=== PATIENT | female | born 1985 | race Caucasian/White ===

== ENCOUNTER 2018-10-30 13:58 | Inpatient (IN) | payer OTHER ==
[~2018-10-30] VITALS: Ht 175.3 cm; Wt 103.4 kg
[2018-10-30 17:08] LABS: BASO % 0 % (0-3); EOS # 0.1 x10^3/uL (0.0-0.7); EOS % 1 % (0-3); HEMATOCRIT 40.3 % (36.0-47.0); HEMOGLOBIN 13.8 g/dL (12.0-15.5); LYMPH # 2.4 x10^3/uL (1.0-4.8); LYMPH % 24 % (24-48); MEAN CORPUSCULAR HEMOGLOBIN 30 pg (25-35); MEAN CORPUSCULAR HGB CONC 34 g/dL (31-37); MEAN CORPUSCULAR VOLUME 86 fL (79-100); MONO # 0.5 x10^3/uL (0.0-1.1); MONO % 6 % (0-9); NEUT # 6.7 x10^3/uL (1.8-7.7); NEUT % 69 % (31-73); PLATELET COUNT 296 x10^3/uL (140-400); RED BLOOD COUNT 4.68 x10^6/uL (3.50-5.40); RED CELL DISTRIBUTION WIDTH 14.3 % (11.5-14.5); WHITE BLOOD COUNT 9.7 x10^3/uL (4.0-11.0)
[2018-10-30] MEDS ORDERED: NITROGLYCERIN SUBLINGUAL 0.4 MG BOTTLE OF 25. SL PRN ×2 (17:15→18:00)
[2018-10-30 17:22] LABS: CALCIUM 8.7 mg/dL (8.5-10.1); CREATININE 0.6 mg/dL (0.6-1.0); GFR 113.8
--- NOTE | 2018-10-30 17:52 | PHYS DOC ---
Past Medical History Past Medical History: COPD, Diabetes-Type II Past Surgical History: Alcohol Use: None Drug Use: None Adult General Chief Complaint Chief Complaint: CHEST PAIN-NON CARDIAC NATURE HPI HPI Patient is a 33 year old female with history of insulin dependent diabetes, hypertension dyslipidemia and tobaccoism presents with intermittent daily chest pain for the past 2-3 months. Patient states pain is external nonradiating and is described as pressure-like. It is worse with exertion and is associated with increased shortness of breath. Although, patient states she does have chest pain that occurs at rest. As pressure is gradually increased in severity and duration over the past 2-3 weeks. She reports increased stress in her home life during this period. Patient states she was evaluated at [facility] emergency Department for the same and was discharged home with nitroglycerin pills and instructed to follow-up with local primary care physician to coordinate outpatient cardiac testing. Chest pain returned today, patient took 2 nitroglycerin at home with improvement. No fever chills, nausea vomiting and sweats. Reports occasional cough nonproductive. No leg pain or swelling. No history of DVT or PE. Additional records obtained from [facility] emergency department medical record[] Review of Systems Review of Systems U symptoms as per history of present illness. All other review symptoms are negative. All other systems were reviewed and found to be within normal limits, except as documented in this note. Current Medications Current Medications Current Medications Medications (Trade) Dose Ordered Sig/[facility] Start Time Stop Time Status Last Admin Dose Admin Nitroglycerin (Nitrostat) 0.4 mg PRN Q5MIN PRN 10/30/18 17:15 10/30/18 17:18 0.4 MG Allergies Allergies Allergies Coded Allergies Type Severity Reaction Last Updated Verified acetaminophen Allergy Intermediate 10/30/18 Yes hydrocodone Allergy Intermediate 10/30/18 Yes vancomycin Allergy Intermediate 10/30/18 Yes Physical Exam Physical Exam Constitutional: Well developed, well nourished, no acute distress, non-toxic appearance. [] HENT: Normocephalic, atraumatic, bilateral external ears normal, oropharynx moist, no oral exudates, nose normal. [] Eyes: PERRLA, EOMI, conjunctiva normal, no discharge. [] Neck: Normal range of motion, no tenderness, supple, no stridor. [] Cardiovascular:Heart rate regular rhythm, no murmur on negative Homans signs. [] Lungs & Thorax: Respirations nonlabored, coarse diminished breath sounds with rhonchi bilaterally. No wheezes or rales.[] Abdomen: Bowel sounds normal, soft, no tenderness, no masses, no pulsatile masses. [] Skin: Warm, dry, no erythema, no rash. [] Back: No tenderness, no CVA tenderness. [] Extremities: No tenderness, no cyanosis, no clubbing, ROM intact, no edema. [] Neurologic: Alert and oriented X 3, normal motor function, normal sensory function, no focal deficits noted. [] Psychologic: Affect normal, judgement normal, mood normal. [] Current Patient Data Vital Signs Vital Signs Date Time Temp Pulse Resp B/P (MAP) Pulse Ox O2 Delivery O2 Flow Rate FiO2 10/30/18 17:18 79 141/89 10/30/18 15:15 98.0 18 98 Room Air 98.0 Lab Values Laboratory Tests Test 10/30/18 15:27 10/30/18 15:36 White Blood Count 9.7 x10^3/uL (4.0-11.0) Red Blood Count 4.68 x10^6/uL (3.50-5.40) Hemoglobin 13.8 g/dL (12.0-15.5) Hematocrit 40.3 % (36.0-47.0) Mean Corpuscular Volume 86 fL (79-100) Mean Corpuscular Hemoglobin 30 pg (25-35) Mean Corpuscular Hemoglobin Concent 34 g/dL (31-37) Red Cell Distribution Width 14.3 % (11.5-14.5) Platelet Count 296 x10^3/uL (140-400) Neutrophils (%) (Auto) 69 % (31-73) Lymphocytes (%) (Auto) 24 % (24-48) Monocytes (%) (Auto) 6 % (0-9) Eosinophils (%) (Auto) 1 % (0-3) Basophils (%) (Auto) 0 % (0-3) Neutrophils # (Auto) 6.7 x10^3/uL (1.8-7.7) Lymphocytes # (Auto) 2.4 x10^3/uL (1.0-4.8) Monocytes # (Auto) 0.5 x10^3/uL (0.0-1.1) Eosinophils # (Auto) 0.1 x10^3/uL (0.0-0.7) Basophils # (Auto) 0.0 x10^3/uL (0.0-0.2) Sodium Level 136 mmol/L (136-145) Potassium Level 4.0 mmol/L (3.5-5.1) Chloride Level 100 mmol/L (98-107) Carbon Dioxide Level 23 mmol/L (21-32) Anion Gap 13 (6-14) Blood Urea Nitrogen 13 mg/dL (7-20) Creatinine 0.6 mg/dL (0.6-1.0) Estimated GFR (Cockcroft-Gault) 113.8 Glucose Level 395 mg/dL (70-99) H Calcium Level 8.7 mg/dL (8.5-10.1) Troponin I Quantitative 0.553 ng/mL (0.000-0.055) POC Urine HCG, Qualitative Hcg negative (Negative) Laboratory Tests 10/30/18 15:27 Laboratory Tests 10/30/18 15:27 EKG EKG [EKG, biphasic T waves in leads V2 and V3.] Radiology/Procedures Radiology/Procedures [Chest x-ray: pending:] Course & Med Decision Making Course & Med Decision Making Pertinent Labs and Imaging studies reviewed. (See chart for details) [PExertional chest pain with escalation in the past 2-3 months with abnormal EKG with repeat ED visit in 24 hours. Patient pain-free after Nitro �1. Troponin positive. Aspirin given. Dr. Mayer in the ED for admission orders. Cardiology notified of consult. ] Dragon Disclaimer Dragon Disclaimer This electronic medical record was generated, in whole or in part, using a voice recognition dictation system. Departure Departure Impression: Primary Impression: NSTEMI (non-ST elevated myocardial infarction) Additional Impression: Hyperglycemia Disposition: 09 ADMITTED INPATIENT Condition: STABLE Referrals: NO PCP (PCP) Problem Qualifiers KAREY CONNER DO Oct 30, 2018 17:52
[2018-10-30] MEDS ORDERED: HEPARIN for IV BOLUS 10,000 UNIT/10 ML VIAL. IV PRN (18:00)
[2018-10-30] MEDS ORDERED: IV NORMAL SALINE 1000ML BAG 1,000 ML IV ONE (18:00)
[2018-10-30] MEDS ORDERED: ONDANSETRON PF 4 MG/2 ML VIAL. IV PRN ×2 (18:00→19:00)
[2018-10-30] MEDS ORDERED: HEPARIN for IV BOLUS 10,000 UNIT/10 ML VIAL. IV ONE (18:00)
[2018-10-30] MEDS: NITROGLYCERIN OINT 1 GM PACKET. TP SCH (18:00)
[2018-10-30] MEDS ORDERED: HEPARIN 25,000UTS/500ML PREMIX 500 ML IV PRN (18:00)
[2018-10-30 18:20] LABS: BARBITURATES NEG (NEG); BENZODIAZEPINES NEG (NEG); CANNABINOIDS NEG (NEG); COCAINE NEG (NEG); METHADONE NEG (NEG); OPIATES NEG (NEG); PHENCYCLIDINE NEG (NEG)
[2018-10-30 18:22] LABS: AMPHETAMINE/METHAMPHETAMINE NEG (NEG)
[2018-10-30] MEDS ORDERED: ASPIRIN CHEWABLE 81 MG TABLET. PO ONE (18:30)
--- NOTE | 2018-10-30 18:53 | PDOC1 ---
History and Physical Date of Admission Date of Admission DATE: 10/30/18 TIME: 18:45 Identification/Chief Complaint Chief Complaint Chest pain Source Source: Patient History of Present Illness History of Present Illness Ms Crocker is a 33yo w/ PMHx insulin dependent type 2 diabetes, hypertension, dyslipidemia, amphetamine abuse in remission, and tobacco use presents with intermittent chest pain that is substernal. She rates it as sharp, 7/10, and it was relieved with NTG. Patient states she was evaluated at [facility] emergency Department for the same and was discharged home with nitroglycerin pills and instructed to follow-up with local primary care physician to coordinate outpatient cardiac testing. Chest pain returned today, patient took 2 nitroglycerin at home with improvement. No fever chills, nausea vomiting and sweats. Reports occasional cough nonproductive. No leg pain or swelling. No history of DVT or PE. On further review she has had chest pain for the past 2-3 months. Patient states pain is external nonradiating and is described as pressure-like. It is worse with exertion and is associated with increased shortness of breath. Although, patient states she does have chest pain that occurs at rest. As pressure is gradually increased in severity and duration over the past 2-3 weeks. She reports increased stress in her home life during this period. She has a 3 year old and 5 year old at home, has some stress related to this and she notes she has been trying to quit smoking over the past couple of days. EKG in the ED showed biphasic t waves in V2 and V3, this is a new change and her initial troponin was 0.553. Started on heparin gtt and admitted for further care. Past Medical History Cardiovascular: HTN, Hyperlipidemia Pulmonary: No pertinent hx CENTRAL NERVOUS SYSTEM: Periperal neuropathy GI: No pertinent hx Heme/Onc: No pertinent hx Hepatobiliary: No pertinent hx Psych: Addictions (Amphetamines in remission) Rheumatologic: No pertinent hx Infectious disease: No pertinent hx ENT: No pertinent hx Renal/: No pertinent hx Endocrine: Diabetes Dermatology: No pertinent hx Past Surgical History Past Surgical History: (x2) Family History Family History: Coronary Artery Disease, Diabetes, High Cholestrol, Hypertension Family History: Grandparents (CAD in paternal grandfather and uncle) Social History Smoke: Quit (was a 1ppd smoker for 20 years) ALCOHOL: rare Drugs: Crystal meth (Has stopped, no longer using) Current Problem List Problem List Problems Medical Problems: (1) Hyperglycemia Status: Acute (2) NSTEMI (non-ST elevated myocardial infarction) Status: Acute Current Medications Current Medications Current Medications Nitroglycerin (Nitrostat) 0.4 mg PRN Q5MIN PRN SL CHEST PAIN Last administered on 10/30/18at 17:18; Start 10/30/18 at 17:15 Aspirin (Children'S Aspirin) 324 mg 1X ONCE PO Last administered on 10/30/18at 18:07; Start 10/30/18 at 18:30; Stop 10/30/18 at 18:31; Status DC Ondansetron HCl (Zofran) 4 mg PRN Q8HRS PRN IV NAUSEA/VOMITING; Start 10/30/18 at 18:00; Stop 10/31/18 at 17:59 Nitroglycerin (Nitrostat) 0.4 mg PRN Q5MIN PRN SL CHEST PAIN; Start 10/30/18 at 18:00; Stop 10/31/18 at 17:59 Heparin Sodium (Porcine) (Heparin Sodium) 4,000 unit 1X ONCE IV Last administered on 10/30/18at 18:27; Start 10/30/18 at 18:00; Stop 10/30/18 at 18:08; Status DC Heparin Sodium/ Dextrose 500 ml @ 0 mls/hr CONT PRN IV . Last administered on 10/30/18at 18:27; Start 10/30/18 at 18:00 Heparin Sodium (Porcine) (Heparin Sodium) 2,500 unit PRN Q6HRS PRN IV FOR UFH LEVEL LESS THAN 0.2; Start 10/30/18 at 18:00 Sodium Chloride 1,000 ml @ 150 mls/hr 1X ONCE IV Last administered on 10/30/18at 18:35; Start 10/30/18 at 18:00; Stop 10/31/18 at 00:39 Nitroglycerin (Nitro-Bid Oint) 1 inch Q6HRS TP Last administered on 10/30/18at 18:28; Start 10/30/18 at 18:00 Allergies Allergies: Coded Allergies: acetaminophen (Verified Allergy, Intermediate, 10/30/18) hydrocodone (Verified Allergy, Intermediate, 10/30/18) vancomycin (Verified Allergy, Intermediate, 10/30/18) ROS General: YES: Fatigue, Malaise, Appetite; No: Chills, Night Sweats, Other PSYCHOLOGICAL ROS: YES: Anxiety; No: Behavioral Disorder, Concentration difficultie, Decreased libido, Depression, Disorientation, Hallucinations, Hostility, Irritablity, Memory difficulties, Mood Swings, Obsessive thoughts, Physical abuse, Sexual abuse, Sleep disturbances, Suicidal ideation, Other Eyes: No Blurry vision, No Decreased vision, No Double vision, No Dry eyes, No Excessive tearing, No Eye Pain, No Itchy Eyes, No Loss of vision, No Photophobia, No Scotomata, No Uses contacts, No Uses glasses, No Other HEENT: No: Heacaches, Visual Changes, Hearing change, Nasal congestion, Nasal discharge, Oral lesions, Sinus pain, Sore Throat, Epistaxis, Sneezing, Snoring, Tinnitus, Vertigo, Vocal changes, Other ALLERGY AND IMMUNOLOGY: No: Hives, Insect Bite Sensitivity, Itchy/Watery Eyes, Nasal Congestion, Post Nasal Drip, Seasonal Allergies, Other Hematological and Lymphatic: No: Bleeding Problems, Blood Clots, Blood Transfusions, Brusing, Night Sweats, Pallor, Swollen Lymph Nodes, Other ENDOCRINE: No: Breast Changes, Galactorrhea, Hair Pattern Changes, Hot Flashes, Malaise/lethargy, Mood Swings, Palpitations, Polydipsia/polyuria, Skin Changes, Temperature Intolerance, Unexpected Weight Changes, Other Breast: No New/Changing Breast Lumps, No Nipple changes, No Nipple discharge, No Other Respiratory: No: Cough, Hemoptysis, Orthopnea, Pleuritic Pain, Shortness of breath, SOB with excertion, Sputum Changes, Stridor, Tachypnea, Wheezing, Other Cardiovascular: yes Chest Pain; No Palpitations, No Orthopnea, No Paroxysmal Noc. Dyspnea, No Edema, No Lt Headedness, No Other Gastrointestinal: Yes Nausea; No Vomiting, No Abdominal Pain, No Diarrhea, No Constipation, No Melena, No Hematochezia, No Other Genitourinary: No Dysuria, No Frequency, No Incontinence, No Hematuria, No Retention, No Discharge, No Urgency, No Pain, No Flank Pain, No Other, No , No , No , No , No , No , No Musculoskeletal: No Gait Disturbance, No Joint Pain, No Joint Stiffness, No Joint Swelling, No Muscle Pain, No Muscular Weakness, No Pain In:, No Swelling In:, No Other Neurological: No Behavorial Changes, No Bowel/Bladder ControlChng, No Confusion, No Dizziness, No Gait Disturbance, No Headaches, No Impaired Coord/balance, No Memory Loss, No Numbness/Tingling, No Seizures, No Speech Problems, No Tremors, No Visual Changes, No Weakness, No Other Skin: No Dry Skin, No Eczema, No Hair Changes, No Lumps, No Mole Changes, No Mottling, No Nail Changes, No Pruritus, No Rash, No Skin Lesion Changes, No Other, No Acne Physical Exam General: Alert, Oriented X3, Cooperative, No acute distress HEENT: Atraumatic, PERRLA, EOMI, Mucous membr. moist/pink Lungs: Clear to auscultation, Normal air movement Heart: S1S2, RRR, no gallops, no murmurs Abdomen: Normal bowel sounds, Soft, No tenderness, No hepatosplenomegaly, No masses Rectal Exam: not examined Extremities: No clubbing, No cyanosis, No edema, Normal pulses, No tenderness/swelling Skin: No rashes, No breakdown, No significant lesion Neuro: Normal gait, Normal speech, Strength at 5/5 X4 ext, Normal tone, Cranial nerves 3-12 NL, Reflexes 2+, Other (Decreased sensation in glove and stocking distribution) Psych/Mental Status: Mental status NL, Mood NL Vitals Vitals Vital Signs Date Time Temp Pulse Resp B/P (MAP) Pulse Ox O2 Delivery O2 Flow Rate FiO2 10/30/18 18:28 92 162/93 10/30/18 15:15 98.0 18 98 Room Air 98.0 Labs Labs Laboratory Tests Test 10/30/18 15:27 10/30/18 15:36 White Blood Count 9.7 x10^3/uL (4.0-11.0) Red Blood Count 4.68 x10^6/uL (3.50-5.40) Hemoglobin 13.8 g/dL (12.0-15.5) Hematocrit 40.3 % (36.0-47.0) Mean Corpuscular Volume 86 fL (79-100) Mean Corpuscular Hemoglobin 30 pg (25-35) Mean Corpuscular Hemoglobin Concent 34 g/dL (31-37) Red Cell Distribution Width 14.3 % (11.5-14.5) Platelet Count 296 x10^3/uL (140-400) Neutrophils (%) (Auto) 69 % (31-73) Lymphocytes (%) (Auto) 24 % (24-48) Monocytes (%) (Auto) 6 % (0-9) Eosinophils (%) (Auto) 1 % (0-3) Basophils (%) (Auto) 0 % (0-3) Neutrophils # (Auto) 6.7 x10^3/uL (1.8-7.7) Lymphocytes # (Auto) 2.4 x10^3/uL (1.0-4.8) Monocytes # (Auto) 0.5 x10^3/uL (0.0-1.1) Eosinophils # (Auto) 0.1 x10^3/uL (0.0-0.7) Basophils # (Auto) 0.0 x10^3/uL (0.0-0.2) Sodium Level 136 mmol/L (136-145) Potassium Level 4.0 mmol/L (3.5-5.1) Chloride Level 100 mmol/L (98-107) Carbon Dioxide Level 23 mmol/L (21-32) Anion Gap 13 (6-14) Blood Urea Nitrogen 13 mg/dL (7-20) Creatinine 0.6 mg/dL (0.6-1.0) Estimated GFR (Cockcroft-Gault) 113.8 Glucose Level 395 mg/dL (70-99) Calcium Level 8.7 mg/dL (8.5-10.1) Troponin I Quantitative 0.553 ng/mL (0.000-0.055) Urine Opiates Screen Neg (NEG) Urine Methadone Screen Neg (NEG) Urine Barbiturates Neg (NEG) Urine Phencyclidine Screen Neg (NEG) Urine Amphetamine/Methamphetamine Neg (NEG) Urine Benzodiazepines Screen Neg (NEG) Urine Cocaine Screen Neg (NEG) Urine Cannabinoids Screen Neg (NEG) Urine Ethyl Alcohol Neg (NEG) Bedside Urine HCG, Qualitative Hcg negative (Negative) Laboratory Tests Test 10/30/18 15:27 10/30/18 15:36 White Blood Count 9.7 x10^3/uL (4.0-11.0) Red Blood Count 4.68 x10^6/uL (3.50-5.40) Hemoglobin 13.8 g/dL (12.0-15.5) Hematocrit 40.3 % (36.0-47.0) Mean Corpuscular Volume 86 fL (79-100) Mean Corpuscular Hemoglobin 30 pg (25-35) Mean Corpuscular Hemoglobin Concent 34 g/dL (31-37) Red Cell Distribution Width 14.3 % (11.5-14.5) Platelet Count 296 x10^3/uL (140-400) Neutrophils (%) (Auto) 69 % (31-73) Lymphocytes (%) (Auto) 24 % (24-48) Monocytes (%) (Auto) 6 % (0-9) Eosinophils (%) (Auto) 1 % (0-3) Basophils (%) (Auto) 0 % (0-3) Neutrophils # (Auto) 6.7 x10^3/uL (1.8-7.7) Lymphocytes # (Auto) 2.4 x10^3/uL (1.0-4.8) Monocytes # (Auto) 0.5 x10^3/uL (0.0-1.1) Eosinophils # (Auto) 0.1 x10^3/uL (0.0-0.7) Basophils # (Auto) 0.0 x10^3/uL (0.0-0.2) Sodium Level 136 mmol/L (136-145) Potassium Level 4.0 mmol/L (3.5-5.1) Chloride Level 100 mmol/L (98-107) Carbon Dioxide Level 23 mmol/L (21-32) Anion Gap 13 (6-14) Blood Urea Nitrogen 13 mg/dL (7-20) Creatinine 0.6 mg/dL (0.6-1.0) Estimated GFR (Cockcroft-Gault) 113.8 Glucose Level 395 mg/dL (70-99) Calcium Level 8.7 mg/dL (8.5-10.1) Troponin I Quantitative 0.553 ng/mL (0.000-0.055) Urine Opiates Screen Neg (NEG) Urine Methadone Screen Neg (NEG) Urine Barbiturates Neg (NEG) Urine Phencyclidine Screen Neg (NEG) Urine Amphetamine/Methamphetamine Neg (NEG) Urine Benzodiazepines Screen Neg (NEG) Urine Cocaine Screen Neg (NEG) Urine Cannabinoids Screen Neg (NEG) Urine Ethyl Alcohol Neg (NEG) Bedside Urine HCG, Qualitative Hcg negative (Negative) VTE Prophylaxis Ordered VTE Prophylaxis Devices: No VTE Pharmacological Prophylaxi: Yes Assessment/Plan Assessment/Plan A/P: Chest pain - classic with EKG changes in V2, V3 and elevated troponin this is an NSTEMI, start heparin GTT, NTG prn, ASA, consult cardiology Insulin dependent type 2 diabetes - will check A1c, basal bolus plus regimen while in house Diabetic peripheral neuropathy - not on any meds, would likely be beneficial to consider duloxetine Hypertension - cont meds, EDI HLD - cont statin. Goal LDL < 70mg/dL Amphetamine abuse in remission - she was a daily user for over a year and quit years ago for her young children. UDS negative here Tobacco use - she has not smoked a cigarette for 2 days, does not wish for a nicotine patch. FEN - ADA diet, npo after midnight PPX - Heparin GTT FULL CODE Dispo - inpatient CVC for acute NSTEMI ALICIA GATES MD Oct 30, 2018 18:53
[2018-10-30] MEDS ORDERED: DEXTROSE 50% 25 GM / 50ML DISP.SYRIN. IV PRN (19:00)
[2018-10-30] MEDS ORDERED: IV DEXTROSE 5% 250 ML BAG. IV PRN (19:00)
--- NOTE | 2018-10-30 19:02 | EKG ---
[facility] [address] [place] [address] Test Date: 2018-10-30 Test Time: 14:09:32 Pat Name: ISMAEL GRANT Department: Room: Gender: F Quantity Surveyor: : 1985 Requested By: KAREY CONNER Order Number: [id number] Reading MD: Measurements Intervals [place] Rate: 85 P: 54 LA: 144 QRS: 43 QRSD: 92 T: 73 QT: 410 QTc: 494 Interpretive Statements SINUS RHYTHM T ABNORMALITY IN HIGH LATERAL LEADS PROLONGED QT ABNORMAL ECG RI6.01 Unconfirmed report No previous ECG available for comparison
[2018-10-30] MEDS: INSULIN GLARGINE SYRINGE. SQ SCH (21:55)
[2018-10-30] MEDS: INSULIN LISPRO 300 UNITS/3 ML VIAL. SQ SCH (21:56)
--- NOTE | 2018-10-30 22:30 | NUR ---
The patient, ISMAEL GRANT, 33 y/o, F admitted by ALICIA GATES MD, was given written information regarding hospital policies, unit procedures and contact persons. Personal belongings left with patient, in room. Patient is resting in bed, call light within reach.
[2018-10-30 22:44] VITALS: BP 171/113
[2018-10-30] MEDS ORDERED: INSU100V13 SQ (23:02)
[2018-10-31] VITALS (16 sets, daily range): BP systolic 132–169; BP diastolic 71–110
--- NOTE | 2018-10-31 00:01 | RAD ---
CHEST AP ONLY Clinical Indication: Chest pain Comparison: None. Findings: The cardiomediastinal silhouette is normal. Lungs are clear. There is no pneumothorax. No pleural effusion is appreciated. No acute bone abnormality. IMPRESSION: No acute cardiopulmonary process. Electronically signed by: Mil Johnson MD (10/30/2018 11:59 PM) [facility]
[2018-10-31] MEDS ORDERED: MORPHINE SULFATE 2 MG/ML VIAL. IV PRN (00:30)
[2018-10-31] MEDS ORDERED: METOPROLOL TARTRATE 5 MG/5 ML VIAL. IVP PRN (00:30)
[2018-10-31] MEDS ORDERED: PROCHLORPERAZINE 5 MG TABLET. PO PRN (00:30)
[2018-10-31] MEDS: NITROGLYCERIN OINT 1 GM PACKET. TP SCH ×2 (05:18)
[2018-10-31 06:39] LABS: BASO % 0 % (0-3); EOS # 0.1 x10^3/uL (0.0-0.7); EOS % 1 % (0-3); HEMATOCRIT 37.8 % (36.0-47.0); HEMOGLOBIN 12.9 g/dL (12.0-15.5); LYMPH # 2.7 x10^3/uL (1.0-4.8); LYMPH % 32 % (24-48); MEAN CORPUSCULAR HEMOGLOBIN 29 pg (25-35); MEAN CORPUSCULAR HGB CONC 34 g/dL (31-37); MEAN CORPUSCULAR VOLUME 85 fL (79-100); MONO # 0.5 x10^3/uL (0.0-1.1); MONO % 6 % (0-9); NEUT # 5.2 x10^3/uL (1.8-7.7); NEUT % 61 % (31-73); PLATELET COUNT 256 x10^3/uL (140-400); RED BLOOD COUNT 4.45 x10^6/uL (3.50-5.40); RED CELL DISTRIBUTION WIDTH 13.9 % (11.5-14.5); WHITE BLOOD COUNT 8.6 x10^3/uL (4.0-11.0)
[2018-10-31 06:48] LABS: UNFRACTIONATED HEPARIN TESTING < 0.10 IU/mL (0.30-0.70)
[2018-10-31 07:05] LABS: ANION GAP 6 (6-14); BLOOD UREA NITROGEN 10 mg/dL (7-20); CALCIUM 8.5 mg/dL (8.5-10.1); CARBON DIOXIDE 27 mmol/L (21-32); CHLORIDE 105 mmol/L (98-107); CHOLESTEROL 213 mg/dL (0-200); CREATININE 0.5 mg/dL (0.6-1.0); GFR 140.4; GLUCOSE 301 mg/dL (70-99); HDLC 25 mg/dL (40-60); POTASSIUM 3.9 mmol/L (3.5-5.1); SODIUM 138 mmol/L (136-145); TRIGLYCERIDES 604 mg/dL (0-150); VLDLC 121 mg/dL (0-40)
[2018-10-31 07:10] LABS: CHOLESTEROL/HDL RATIO 8.5
[2018-10-31 08:59] LABS: ALBUMIN 2.8 g/dL (3.4-5.0); ALK PHOS 74 U/L (46-116); ALT (SGPT) 15 U/L (14-59); DIRECT BILIRUBIN < 0.1 mg/dL (0.0-0.2); MAGNESIUM 1.8 mg/dL (1.8-2.4)
[2018-10-31] MEDS ORDERED: ASPIRIN 325 MG TABLET PO ONE ×2 (09:00→11:00)
[2018-10-31 09:16] LABS: AST (SGOT) 11 U/L (15-37); TOTAL BILIRUBIN 0.2 mg/dL (0.2-1.0)
--- NOTE | 2018-10-31 09:24 | PDOC2 ---
CARDIAC CONSULT DATE OF CONSULT Date of Consult DATE: 10/31/18 TIME: 09:24 REASON FOR CONSULT Reason for Consult: NSTEMI REFERRING PHYSICIAN Referring Physician: Chan SOURCE Source: Chart review, Patient HISTORY OF PRESENT ILLNESS HISTORY OF PRESENT ILLNESS This is a pleasant 33 yo female admitted for complains of chest pain. Apparently she has been having this chest discomfort for about 2-3 months but it does not last that long. In the last 3 days she has been having midhcest pressure that radiates to both her arms with tingling to her hands and also positive for RIVERA and exertional CP which lastin at least 20 minutes at a time at least before decreasing in intensity. No PND nor orthopnea. No nausea/vomiting or indigestion. No palpitations or frequent dizziness. She was [facility] 2 days ago in ED and was released yesterday. Her trops were normal over there but she was discharge noting that she may have COPD exacerbation as she was noted with wheeze and SOA. She does smoke tobacco. Denies any past hx of heart disease. Positive for DM but poorly medicated and also with HLP and HTN which are unmedicated as well. She was released yesterday from [facility] but then came back this time to [facility] and got admitted. Presently still has some chest tightness despite NTG paste. No recent falls, injury, past VTE, bleeding disorders. PAST MEDICAL HISTORY Cardiovascular: HTN, Hyperlipidemia Pulmonary: No pertinent hx CENTRAL NERVOUS SYSTEM: Other (No pertinent history) GI: No pertinent hx Heme/Onc: No pertinent hx Hepatobiliary: No pertinent hx Psych: No pertinent hx Musculoskeletal: Other (None) Infectious disease: No pertinent hx ENT: No pertinent hx Renal/: No pertinent hx Endocrine: Diabetes (2) Dermatology: No pertinent hx PAST SURGICAL HISTORY Past Surgical History: No pertinent history FAMILY HISTORY Family History noncontributory SOCIAL HISTORY Smoke: <1 pack per day ALCOHOL: none Drugs: None Lives: Alone CURRENT MEDICATIONS CURRENT MEDICATIONS Current Medications Medications (Trade) Dose Ordered Sig/Glenroy Route PRN Reason Start Time Stop Time Status Last Admin Dose Admin Nitroglycerin (Nitrostat) 0.4 mg PRN Q5MIN PRN SL CHEST PAIN 10/30/18 17:15 10/30/18 17:18 Aspirin (Children'S Aspirin) 324 mg 1X ONCE PO 10/30/18 18:30 10/30/18 18:31 DC 10/30/18 18:07 Heparin Sodium (Porcine) (Heparin Sodium) 4,000 unit 1X ONCE IV 10/30/18 18:00 10/30/18 18:08 DC 10/30/18 18:27 Heparin Sodium/ Dextrose 500 ml @ 0 mls/hr CONT PRN IV . 10/30/18 18:00 10/30/18 18:27 Heparin Sodium (Porcine) (Heparin Sodium) 2,500 unit PRN Q6HRS PRN IV FOR UFH LEVEL LESS THAN 0.2 10/30/18 18:00 10/31/18 07:33 Sodium Chloride 1,000 ml @ 150 mls/hr 1X ONCE IV 10/30/18 18:00 10/31/18 00:39 DC 10/30/18 18:35 Nitroglycerin (Nitro-Bid Oint) 1 inch Q6HRS TP 10/30/18 18:00 10/30/18 18:28 Insulin Glargine (Lantus Syringe) 10 unit QHS SQ 10/30/18 21:00 10/30/18 21:57 Insulin Human Lispro (HumaLOG) 0-7 UNITS TIDACHC SQ 10/30/18 21:00 10/30/18 21:57 Prochlorperazine Maleate (Compazine) 5 mg 1X PRN PRN PO NAUSEA/VOMITING 10/31/18 00:30 10/31/18 00:33 ALLERGIES ALLERGIES: Coded Allergies: acetaminophen (Verified Allergy, Intermediate, 10/30/18) hydrocodone (Verified Allergy, Intermediate, 10/30/18) vancomycin (Verified Allergy, Intermediate, 10/30/18) ROS Review of System 14 point ROS evaluated with pertinent positives noted per HPI PHYSICAL EXAM General: Alert, Oriented X3, Cooperative, No acute distress HEENT: Atraumatic, Mucous membr. moist/pink Lungs: Clear to auscultation, Normal air movement Heart: Regular rate (SR), Normal S1, Normal S2, No murmurs Abdomen: Soft, No tenderness Extremities: No edema Skin: No breakdown, No significant lesion Neuro: Normal speech, Sensation intact Psych/Mental Status: Mental status NL, Mood NL MUSCULOSKELETAL: Full range of motion without pain VITALS/I&O VITALS/I&O: Vital Signs Date Time Temp Pulse Resp B/P (MAP) Pulse Ox O2 Delivery O2 Flow Rate FiO2 10/31/18 02:11 98.6 84 138/79 (98) 98 Room Air 98.6 10/30/18 22:07 14 I & O 10/30/18 10/30/18 10/31/18 14:59 22:59 06:59 Intake Total 800 ml Output Total 900 ml Balance -100 ml LABS Lab: Laboratory Tests Test 10/30/18 15:27 10/30/18 15:36 10/30/18 21:36 10/30/18 23:55 White Blood Count 9.7 x10^3/uL (4.0-11.0) Red Blood Count 4.68 x10^6/uL (3.50-5.40) Hemoglobin 13.8 g/dL (12.0-15.5) Hematocrit 40.3 % (36.0-47.0) Mean Corpuscular Volume 86 fL (79-100) Mean Corpuscular Hemoglobin 30 pg (25-35) Mean Corpuscular Hemoglobin Concent 34 g/dL (31-37) Red Cell Distribution Width 14.3 % (11.5-14.5) Platelet Count 296 x10^3/uL (140-400) Neutrophils (%) (Auto) 69 % (31-73) Lymphocytes (%) (Auto) 24 % (24-48) Monocytes (%) (Auto) 6 % (0-9) Eosinophils (%) (Auto) 1 % (0-3) Basophils (%) (Auto) 0 % (0-3) Neutrophils # (Auto) 6.7 x10^3/uL (1.8-7.7) Lymphocytes # (Auto) 2.4 x10^3/uL (1.0-4.8) Monocytes # (Auto) 0.5 x10^3/uL (0.0-1.1) Eosinophils # (Auto) 0.1 x10^3/uL (0.0-0.7) Basophils # (Auto) 0.0 x10^3/uL (0.0-0.2) Sodium Level 136 mmol/L (136-145) Potassium Level 4.0 mmol/L (3.5-5.1) Chloride Level 100 mmol/L (98-107) Carbon Dioxide Level 23 mmol/L (21-32) Anion Gap 13 (6-14) Blood Urea Nitrogen 13 mg/dL (7-20) Creatinine 0.6 mg/dL (0.6-1.0) Estimated GFR (Cockcroft-Gault) 113.8 Glucose Level 395 mg/dL (70-99) H Calcium Level 8.7 mg/dL (8.5-10.1) Troponin I Quantitative 0.553 ng/mL (0.000-0.055) 0.563 ng/mL (0.000-0.055) Urine Opiates Screen Neg (NEG) Urine Methadone Screen Neg (NEG) Urine Barbiturates Neg (NEG) Urine Phencyclidine Screen Neg (NEG) Urine Amphetamine/Methamphetamine Neg (NEG) Urine Benzodiazepines Screen Neg (NEG) Urine Cocaine Screen Neg (NEG) Urine Cannabinoids Screen Neg (NEG) Urine Ethyl Alcohol Neg (NEG) POC Urine HCG, Qualitative Hcg negative (Negative) Glucose (Fingerstick) 295 mg/dL (70-99) H Test 10/31/18 00:40 10/31/18 06:30 10/31/18 08:17 Heparin Anti-Xa Act, Unfractionated < 0.10 IU/mL (0.30-0.70) L < 0.10 IU/mL (0.30-0.70) L White Blood Count 8.6 x10^3/uL (4.0-11.0) Red Blood Count 4.45 x10^6/uL (3.50-5.40) Hemoglobin 12.9 g/dL (12.0-15.5) Hematocrit 37.8 % (36.0-47.0) Mean Corpuscular Volume 85 fL (79-100) Mean Corpuscular Hemoglobin 29 pg (25-35) Mean Corpuscular Hemoglobin Concent 34 g/dL (31-37) Red Cell Distribution Width 13.9 % (11.5-14.5) Platelet Count 256 x10^3/uL (140-400) Neutrophils (%) (Auto) 61 % (31-73) Lymphocytes (%) (Auto) 32 % (24-48) Monocytes (%) (Auto) 6 % (0-9) Eosinophils (%) (Auto) 1 % (0-3) Basophils (%) (Auto) 0 % (0-3) Neutrophils # (Auto) 5.2 x10^3/uL (1.8-7.7) Lymphocytes # (Auto) 2.7 x10^3/uL (1.0-4.8) Monocytes # (Auto) 0.5 x10^3/uL (0.0-1.1) Eosinophils # (Auto) 0.1 x10^3/uL (0.0-0.7) Basophils # (Auto) 0.0 x10^3/uL (0.0-0.2) Prothrombin Time 12.0 SEC (11.7-14.0) Prothrombin Time INR 0.9 (0.8-1.1) Sodium Level 138 mmol/L (136-145) Potassium Level 3.9 mmol/L (3.5-5.1) Chloride Level 105 mmol/L (98-107) Carbon Dioxide Level 27 mmol/L (21-32) Anion Gap 6 (6-14) Blood Urea Nitrogen 10 mg/dL (7-20) Creatinine 0.5 mg/dL (0.6-1.0) L Estimated GFR (Cockcroft-Gault) 140.4 Glucose Level 301 mg/dL (70-99) H Calcium Level 8.5 mg/dL (8.5-10.1) Troponin I Quantitative 0.424 ng/mL (0.000-0.055) Triglycerides Level 604 mg/dL (0-150) H Cholesterol Level 213 mg/dL (0-200) H LDL Cholesterol, Calculated mg/dL (0-100) VLDL Cholesterol, Calculated 121 mg/dL (0-40) H Non-HDL Cholesterol Calculated 188 mg/dL (0-129) H HDL Cholesterol 25 mg/dL (40-60) L Cholesterol/HDL Ratio 8.5 Thyroid Stimulating Hormone (TSH) 1.849 uIU/mL (0.358-3.74) Glucose (Fingerstick) 294 mg/dL (70-99) H Laboratory Tests 10/30/18 15:27 10/31/18 06:30 Laboratory Tests 10/30/18 15:27 10/31/18 06:30 ASSESSMENT/PLAN ASSESSMENT/PLAN 1. NSTEMI: EKG with wellens consistency with likely LAD culprit 2. HTN 3. HLP with high TG 4. DM2: uncontrolled 5. Tobaccoism 6. Obesity Recommendations 1. Smoking cessation 2. Cardiac rehab 3. LHC today with possible PCI, risks and benefits discussed and agreeable to proceed 4. Statin, dietitian consult, lifestyle modification 5. BG optimization per PCP 6. Start on BB and ACEi and statin. Will provide samples and discount card for vascepa 7. TTE, TSH 8. Will need discussion in regards to contraception. AGNES PEREZ APRN Oct 31, 2018 09:24
[2018-10-31] MEDS ORDERED: LIDOCAINE 1% Multi-Dose 20 ML VIAL. ONE (09:29)
[2018-10-31] MEDS ORDERED: HEPARIN for ARTERIAL LINE 1,500 ML ONE (09:29)
[2018-10-31] MEDS ORDERED: IODIXANOL 320 MG/ML 100 ML VIAL. ONE ×3 (09:29→10:43)
[2018-10-31] MEDS ORDERED: NITROGLYCERIN SUBLINGUAL 0.4 MG BOTTLE OF 25. SL PRN ×2 (09:30→12:15)
[2018-10-31] MEDS: INSULIN LISPRO 300 UNITS/3 ML VIAL. SQ SCH ×4 (09:39→21:00)
[2018-10-31] MEDS ORDERED: MIDAZOLAM HCL/PF 5 MG/5 ML VIAL. ONE (09:41)
[2018-10-31] MEDS ORDERED: fentaNYL PF VIAL 100 MCG/2 ML VIAL ONE (09:41)
[2018-10-31] MEDS ORDERED: IV NORMAL SALINE 1000ML BAG 1,000 ML IV ONE (09:45)
[2018-10-31] MEDS ORDERED: NITROGLYCERIN PREMIX 250 ML IV ONE (10:01)
[2018-10-31] MEDS ORDERED: NITROGLYCERIN PREMIX 250 ML IV PRN (10:03)
--- NOTE | 2018-10-31 10:03 | PDOC ---
MODERATE SEDATION ASSESSMENT RISKS/ALTERNATIVES Risks/Alternatives Risks and alternatives of this type of sedation and procedure discussed with: RISK/ALTERNATIVES: Patient H & P ON CHART H & P H & P on chart and reviewed for co-morbid conditions and appropriate labs. H&P ON CHART: Yes STATUS PREG STATUS ASSESSED: Yes MEDS/ALLERGIES REVIEWED Meds/Allergies Reviewed Medications and Allergies including time and route of recently administered narcotics and sedatives. MEDS/ALLERGIES REVIEWED: Yes ASA RATING ASA RATING: II AIRWAY ASSESSMENT Airway Assessment Airway patency, oral function limitations, presence of caps, crowns, dentures, partials, and ability to extend neck assessed. AIRWAY ASSESSMENT: Yes MALLAMPATI SCORE MALLAMPATI SCORE: II PRE-SEDATION ASSESSMENT PRE-SEDATION ASSESSMENT: Yes TOPHER GARCIA MD Oct 31, 2018 10:03
[2018-10-31] MEDS ORDERED: MIDAZOLAM HCL/PF 5 MG/5 ML VIAL. IV ONE (10:15)
[2018-10-31] MEDS ORDERED: fentaNYL PF VIAL 100 MCG/2 ML VIAL IV ONE (10:15)
[2018-10-31] MEDS ORDERED: IODIXANOL 320 MG/ML 100 ML VIAL. IART ONE (10:15)
[2018-10-31] MEDS ORDERED: LIDOCAINE 1% Multi-Dose 20 ML VIAL. INJ ONE (10:15)
[2018-10-31] MEDS ORDERED: BIVALIRUDIN 250 MG VIAL. IV ONE ×2 (10:25→10:32)
[2018-10-31] MEDS ORDERED: ASPIRIN 325 MG TABLET ONE (10:53)
[2018-10-31] MEDS ORDERED: CLOPIDOGREL BISULFATE 75 MG TABLET ONE (10:53)
[2018-10-31] MEDS ORDERED: CLOPIDOGREL BISULFATE 75 MG TABLET PO ONE (11:00)
[2018-10-31] MEDS ORDERED: IV NORMAL SALINE 1000ML BAG 1,000 ML IV SCH (12:02)
[2018-10-31] MEDS ORDERED: fentaNYL PF VIAL 100 MCG/2 ML VIAL IV PRN (12:15)
[2018-10-31] MEDS ORDERED: ATROPINE 0.5 MG/5 ML DISP.SYRINGE. IV PRN (12:15)
[2018-10-31] MEDS ORDERED: LIDOCAINE 2% 100 MG/5 ML SYRINGE. IV PRN (12:15)
[2018-10-31] MEDS ORDERED: AMIODARONE 150 MG in IV DEXTROSE 5% 100ML 100 ML IV PRN (12:15)
[2018-10-31] MEDS ORDERED: 0.9 % SODIUM CHLORIDE 10 ML DISP.SYRIN. IV PRN (12:15)
--- NOTE | 2018-10-31 12:36 | PDOC ---
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 DIVYA SANCHES Vitals/I&O Vitals/I&O: Vital Signs Date Time Temp Pulse Resp B/P (MAP) Pulse Ox O2 Delivery O2 Flow Rate FiO2 10/31/18 11:59 97 Room Air 10/31/18 11:30 90 10/31/18 11:26 22 2.0 10/31/18 07:00 98.5 146/89 (108) 98.5 I & O 10/30/18 10/30/18 10/31/18 14:59 22:59 06:59 Intake Total 800 ml Output Total 900 ml Balance -100 ml Physical Exam Physical Exam: Deferred do to presence of sterile field General: Alert, Oriented X3, Cooperative, No acute distress Heart: Regular rate Extremities: No clubbing, No cyanosis, No edema, Normal pulses, No ten derness/swelling Skin: No rashes, No breakdown, No significant lesion Labs Labs: Laboratory Tests Test 10/30/18 15:27 10/30/18 15:36 10/30/18 21:36 10/30/18 23:55 White Blood Count 9.7 x10^3/uL (4.0-11.0) Red Blood Count 4.68 x10^6/uL (3.50-5.40) Hemoglobin 13.8 g/dL (12.0-15.5) Hematocrit 40.3 % (36.0-47.0) Mean Corpuscular Volume 86 fL (79-100) Mean Corpuscular Hemoglobin 30 pg (25-35) Mean Corpuscular Hemoglobin Concent 34 g/dL (31-37) Red Cell Distribution Width 14.3 % (11.5-14.5) Platelet Count 296 x10^3/uL (140-400) Neutrophils (%) (Auto) 69 % (31-73) Lymphocytes (%) (Auto) 24 % (24-48) Monocytes (%) (Auto) 6 % (0-9) Eosinophils (%) (Auto) 1 % (0-3) Basophils (%) (Auto) 0 % (0-3) Neutrophils # (Auto) 6.7 x10^3/uL (1.8-7.7) Lymphocytes # (Auto) 2.4 x10^3/uL (1.0-4.8) Monocytes # (Auto) 0.5 x10^3/uL (0.0-1.1) Eosinophils # (Auto) 0.1 x10^3/uL (0.0-0.7) Basophils # (Auto) 0.0 x10^3/uL (0.0-0.2) Sodium Level 136 mmol/L (136-145) Potassium Level 4.0 mmol/L (3.5-5.1) Chloride Level 100 mmol/L (98-107) Carbon Dioxide Level 23 mmol/L (21-32) Anion Gap 13 (6-14) Blood Urea Nitrogen 13 mg/dL (7-20) Creatinine 0.6 mg/dL (0.6-1.0) Estimated GFR (Cockcroft-Gault) 113.8 Glucose Level 395 mg/dL (70-99) Calcium Level 8.7 mg/dL (8.5-10.1) Troponin I Quantitative 0.553 ng/mL (0.000-0.055) 0.563 ng/mL (0.000-0.055) Urine Opiates Screen Neg (NEG) Urine Methadone Screen Neg (NEG) Urine Barbiturates Neg (NEG) Urine Phencyclidine Screen Neg (NEG) Urine Amphetamine/Methamphetamine Neg (NEG) Urine Benzodiazepines Screen Neg (NEG) Urine Cocaine Screen Neg (NEG) Urine Cannabinoids Screen Neg (NEG) Urine Ethyl Alcohol Neg (NEG) Bedside Urine HCG, Qualitative Hcg negative (Negative) Glucose (Fingerstick) 295 mg/dL (70-99) Test 10/31/18 00:40 10/31/18 06:30 10/31/18 08:17 10/31/18 11:46 Heparin Anti-Xa Act, Unfractionated < 0.10 IU/mL (0.30-0.70) < 0.10 IU/mL (0.30-0.70) White Blood Count 8.6 x10^3/uL (4.0-11.0) Red Blood Count 4.45 x10^6/uL (3.50-5.40) Hemoglobin 12.9 g/dL (12.0-15.5) Hematocrit 37.8 % (36.0-47.0) Mean Corpuscular Volume 85 fL (79-100) Mean Corpuscular Hemoglobin 29 pg (25-35) Mean Corpuscular Hemoglobin Concent 34 g/dL (31-37) Red Cell Distribution Width 13.9 % (11.5-14.5) Platelet Count 256 x10^3/uL (140-400) Neutrophils (%) (Auto) 61 % (31-73) Lymphocytes (%) (Auto) 32 % (24-48) Monocytes (%) (Auto) 6 % (0-9) Eosinophils (%) (Auto) 1 % (0-3) Basophils (%) (Auto) 0 % (0-3) Neutrophils # (Auto) 5.2 x10^3/uL (1.8-7.7) Lymphocytes # (Auto) 2.7 x10^3/uL (1.0-4.8) Monocytes # (Auto) 0.5 x10^3/uL (0.0-1.1) Eosinophils # (Auto) 0.1 x10^3/uL (0.0-0.7) Basophils # (Auto) 0.0 x10^3/uL (0.0-0.2) Prothrombin Time 12.0 SEC (11.7-14.0) Prothromb Time International Ratio 0.9 (0.8-1.1) Sodium Level 138 mmol/L (136-145) Potassium Level 3.9 mmol/L (3.5-5.1) Chloride Level 105 mmol/L (98-107) Carbon Dioxide Level 27 mmol/L (21-32) Anion Gap 6 (6-14) Blood Urea Nitrogen 10 mg/dL (7-20) Creatinine 0.5 mg/dL (0.6-1.0) Estimated GFR (Cockcroft-Gault) 140.4 Glucose Level 301 mg/dL (70-99) Calcium Level 8.5 mg/dL (8.5-10.1) Magnesium Level 1.8 mg/dL (1.8-2.4) Total Bilirubin 0.2 mg/dL (0.2-1.0) Direct Bilirubin < 0.1 mg/dL (0.0-0.2) Aspartate Amino Transf (AST/SGOT) 11 U/L (15-37) Alanine Aminotransferase (ALT/SGPT) 15 U/L (14-59) Alkaline Phosphatase 74 U/L (46-116) Troponin I Quantitative 0.424 ng/mL (0.000-0.055) Total Protein 6.0 g/dL (6.4-8.2) Albumin 2.8 g/dL (3.4-5.0) Triglycerides Level 604 mg/dL (0-150) Cholesterol Level 213 mg/dL (0-200) LDL Cholesterol, Calculated mg/dL (0-100) VLDL Cholesterol, Calculated 121 mg/dL (0-40) Non-HDL Cholesterol Calculated 188 mg/dL (0-129) HDL Cholesterol 25 mg/dL (40-60) Cholesterol/HDL Ratio 8.5 Thyroid Stimulating Hormone (TSH) 1.849 uIU/mL (0.358-3.74) Glucose (Fingerstick) 294 mg/dL (70-99) 203 mg/dL (70-99) Review of Systems Review of Systems: Unable to obtain, pt was sedated Assessment and Plan Assessmemt and Plan Problems Medical Problems: (1) Diabetic peripheral neuropathy Status: Chronic (2) HLD (hyperlipidemia) Status: Chronic (3) Hyperglycemia Status: Acute (4) Hypertension Status: Chronic (5) Insulin dependent diabetes mellitus Status: Chronic (6) NSTEMI (non-ST elevated myocardial infarction) Status: Acute Assessment Chest pain NSTEMI Hyperglycemia Diabetic peripheral neuropathy Hypertension Plan ICU monitoring Discussed with cardiology Cardiac monitoring Trend enzymes Home meds Anticoagulation per cardio Prognosis guarded Appreciate cardiology quick intervention Comment Review of Relevant I have reviewed the following items fermin (where applicable) has been applied. Medications: Current Medications Medications (Trade) Dose Ordered Sig/Glenroy Route PRN Reason Start Time Stop Time Status Last Admin Dose Admin Nitroglycerin (Nitrostat) 0.4 mg PRN Q5MIN PRN SL CHEST PAIN 10/30/18 17:15 10/31/18 09:27 DC 10/30/18 17:18 Aspirin (Children'S Aspirin) 324 mg 1X ONCE PO 10/30/18 18:30 10/30/18 18:31 DC 10/30/18 18:07 Heparin Sodium (Porcine) (Heparin Sodium) 4,000 unit 1X ONCE IV 10/30/18 18:00 10/31/18 12:03 DC 10/30/18 18:27 Heparin Sodium/ Dextrose 500 ml @ 0 mls/hr CONT PRN IV . 10/30/18 18:00 10/31/18 12:03 DC 10/30/18 18:27 Heparin Sodium (Porcine) (Heparin Sodium) 2,500 unit PRN Q6HRS PRN IV FOR UFH LEVEL LESS THAN 0.2 10/30/18 18:00 10/31/18 12:03 DC 10/31/18 07:33 Sodium Chloride 1,000 ml @ 150 mls/hr 1X ONCE IV 10/30/18 18:00 10/31/18 00:39 DC 10/30/18 18:35 Nitroglycerin (Nitro-Bid Oint) 1 inch Q6HRS TP 10/30/18 18:00 10/31/18 09:26 DC 10/30/18 18:28 Aspirin (Unique Aspirin) 325 mg DAILY ONCE PO 10/31/18 09:00 10/31/18 09:01 DC 10/31/18 09:39 Insulin Glargine (Lantus Syringe) 10 unit QHS SQ 10/30/18 21:00 10/30/18 21:57 Insulin Human Lispro (HumaLOG) 0-7 UNITS TIDACHC SQ 10/30/18 21:00 10/31/18 09:39 Prochlorperazine Maleate (Compazine) 5 mg 1X PRN PRN PO NAUSEA/VOMITING 10/31/18 00:30 10/31/18 00:33 Sodium Chloride 1,000 ml @ 100 mls/hr 1X ONCE IV 10/31/18 09:45 10/31/18 19:44 10/31/18 09:40 Heparin Sodium/ Sodium Chloride (HEPARIN for ARTERIAL LINE FLUSH) 1,000 unit 1X ONCE IART 10/31/18 10:15 10/31/18 10:47 DC 10/31/18 11:26 Heparin Sodium/ Sodium Chloride (HEPARIN for ARTERIAL LINE FLUSH) 1,000 unit 1X ONCE IART 10/31/18 10:15 10/31/18 10:47 DC 10/31/18 11:26 Midazolam HCl (Versed) 5 mg 1X ONCE IV 10/31/18 10:15 10/31/18 10:47 DC 10/31/18 11:26 Fentanyl Citrate (Fentanyl 2ml Vial) 100 mcg 1X ONCE IV 10/31/18 10:15 10/31/18 10:47 DC 10/31/18 11:26 Iodixanol (Visipaque 320) 100 ml 1X ONCE IART 10/31/18 10:15 10/31/18 10:47 DC 10/31/18 11:26 Lidocaine HCl (Lidocaine 1% 20ml Vial) 20 ml 1X ONCE INJ 10/31/18 10:15 10/31/18 10:47 DC 10/31/18 11:26 Bivalirudin (Angiomax) 250 mg 1X ONCE IV 10/31/18 10:32 10/31/18 10:48 DC 10/31/18 11:26 Clopidogrel Bisulfate (Plavix) 600 mg 1X ONCE PO 10/31/18 11:00 10/31/18 11:01 DC 10/31/18 11:26 Aspirin (Unique Aspirin) 325 mg 1X ONCE PO 10/31/18 11:00 10/31/18 11:01 DC 10/31/18 11:26 Nitroglycerin/ Dextrose 250 ml @ 1.5 mls/hr CONT PRN IV SEE I/O RECORD 10/31/18 10:03 10/31/18 11:26 MINH SMALLWOOD III DO Oct 31, 2018 12:36
[2018-10-31] MEDS: LISINOPRIL 10 MG TABLET PO SCH (13:53)
--- NOTE | 2018-10-31 13:57 | NUR ---
SS following for discharge planning. SS reviewed pt chart. Pt is from home and is currently on room air. No discharge needs noted at this time. SS will continue to follow for discharge planning.
--- NOTE | 2018-10-31 14:09 | CARD ---
MR#: [id number] Date of Study: 10/31/2018 Ordering Physician: AGNES PEREZ, Referring Physician: AGNES PEREZ Tech: Jazzy Mi RDCS APPROVED REPORT EXAM: Two-dimensional and M-mode echocardiogram with Doppler and color Doppler. Other Information Quality : Good INDICATION Non STEMI S/P Cardiac Cath with Stent 2D DIMENSIONS RVDd2.7 (2.9-3.5cm)Left Atrium(2D)3.1 (1.6-4.0cm) IVSd0.9 (0.7-1.1cm)Aortic Root(2D)3.1 (2.0-3.7cm) LVDd4.7 (3.9-5.9cm)LVOT Diameter2.0 (1.8-2.4cm) PWd0.9 (0.7-1.1cm)LVDs3.5 (2.5-4.0cm) FS (%) 26.3 %SV53.7 ml LVEF(%)60.0 (>50%) Aortic Valve AoV Peak Jarrod.124.4cm/sAoV VTI20.3cm AO Peak GR.6.2mmHgLVOT VTI 18.39cm AO Mean GR.4mmHgAVA (VTI)2.90cm2 Mitral Valve MV E Kxofgpia76.3cm/sMV DECEL [id number] MV A Hohneitb63.6cm/sE/A Ratio1.2 TDI Lateral E' P. V14.87cm/sMedial E' P. V8.11cm/s E/Lateral E'5.7E/Medial E'10.5 Tricuspid Valve TR P. Rsxluqlo803wh/sRAP GNAOUCFZ8buFp TR Peak Gr.62kyQmOHCX70yzQl Pulmonary Vein S1 Yluuewek78.2cm/sS2 Rbdfwoic47.17cm/s D2 Olvkzwkl80.2cm/s LEFT VENTRICLE The left ventricle is normal size. There is normal left ventricular wall thickness. The left ventricu lar systolic function is normal. The Ejection Fraction is 55-60%. There is normal LV segmental wall m otion. The left ventricular diastolic function and filling is normal for age. RIGHT VENTRICLE The right ventricle is normal size. The right ventricular systolic function is normal. ATRIA The left atrium size is normal. The right atrium size is normal. The interatrial septum is intact wit h no evidence for an atrial septal defect or patent foramen ovale as noted on 2-D or Doppler imaging. AORTIC VALVE The aortic valve is calcified but opens well. Doppler and Color Flow revealed no significant aortic r egurgitation. There is no significant aortic valvular stenosis. MITRAL VALVE The mitral valve is normal in structure and function. There is no evidence of mitral valve prolapse. There is no mitral valve stenosis. Doppler and Color Flow revealed no mitral valve regurgitation note d. TRICUSPID VALVE The tricuspid valve is normal in structure and function. Doppler and Color Flow revealed mild tricusp id regurgitation. There is mild pulmonary hypertension. The PA pressure was estimated at 33 mmHg. The re is no tricuspid valve stenosis. PULMONIC VALVE The pulmonic valve is not well visualized. Doppler and Color Flow revealed no pulmonic valvular regur gitation. There is no pulmonic valvular stenosis. GREAT VESSELS The aortic root is normal in size. The ascending aorta is normal in size. The IVC is dilated and krystle apses >50% with inspiration. PERICARDIAL EFFUSION There is no evidence of significant pericardial effusion. Critical Notification Critical Value: No <Conclusion> The left ventricular systolic function is normal. The Ejection Fraction is 55-60%. There is normal LV segmental wall motion. Mild tricuspid regurgitation. The PA pressure was estimated at 33 mmHg. There is no evidence of significant pericardial effusion. Signed by : Ezequiel King, Electronically Approved : 10/31/2018 14:08:56
--- NOTE | 2018-10-31 14:14 | EKG ---
[facility] [address] [place] [address] Test Date: 2018-10-31 Test Time: 13:56:23 Pat Name: ISMAEL GRANT Department: Room: 205 1 Gender: F Motion Picture Set Worker: : 1985 Requested By: TOPHER GARCIA Order Number: [id number] Reading MD: Measurements Intervals Sherman Rate: 88 P: 53 TN: 158 QRS: 47 QRSD: 88 T: 107 QT: 396 QTc: 483 Interpretive Statements SINUS RHYTHM T ABNORMALITY IN ANTERIOR LEADS PROLONGED QT ABNORMAL ECG RI6.01 Unconfirmed report No previous ECG available for comparison
--- NOTE | 2018-10-31 15:13 | CARD ---
MR#: [id number] Date of Study: 10/31/2018 Ordering Physician: TOPHER DEWEY, Referring Physician: TOPHER DEWEY, Carly: Reena Clark RT (R) APPROVED REPORT Procedures Left heart catheterization Left ventriculogram Selective coronary angiogram Bare-metal stent placement to the LAD. The patient is a 33-year-old female with recurrent episodes of chest pain. She presented to the emerg ency room and was admitted. She had a mild elevation in troponin. In the setting of her recurrent martín st pain and abnormal troponin levels a cardiac catheterization was recommended. Risks and benefits we re discussed with the patient. She agreed to proceed. After informed consent was obtained the patient was brought to the heart catheterization lab. The are a of the right femoral artery was prepared usual manner with Betadine, sterile draping and local anes thetic. An 18-gauge needle was used to enter the right femoral artery, a wire placed the 6 Sammarinese she ath placed over the wire. A 6 Sammarinese JL4 diagnostic catheter was used to engage the left coronary sys tem and sequential injections in various views were obtained. A 6 Sammarinese Marcus right diagnostic ca theter was used to engage the right coronary artery system and sequential injections in various views were obtained. A pigtail was advanced to the ascending aorta and then the left ventricle. Pressures were measured. A 30� MOLINA left ventriculogram was performed. Pullback pressures were measured. After r eview of the films the patient had a proximal 85% LAD lesion. We proceeded to revascularize the vesse l. Angiomax as per protocol was administered. A 6 Sammarinese XB 3.5 guide was used to engage the left system . The lesion was crossed with a PT choice wire. Initial dilatations were with a 3.0 x 15 trek balloon with 3 inflations at 8 sean for 18 seconds. A 3.0 x 23 MultiLink vision bare metal stent was then dep loyed with one inflation at 16 sean for 16 seconds. Residual lesion was 0%. The wire and guiding syste m removed from the patient. Injection the sheath showed normal placement. The sheath was removed and sealed with an Angio-Seal product. The patient was moved to the holding area in stable condition. Findings Hemodynamics LV pressure of 124/4/10. Aortic root pressure of 122/82. Coronaries. Left main. Left main was relatively short vessel. It had no lesions. Left anterior descending. The LAD was a moderate tpo large size vessel. It had a proximal 85% or grea ter lesion. Left circumflex. The left circumflex is a moderate size vessel. It had a mid 15% lesion. Right coronary artery. The right coronary is also a moderate size vessel. It had a mid 25% lesion. Left ventriculogram. The left ventricle showed normal left ventricle systolic function with an ejection fraction of greate r than 55%. <Conclusion> Severe single-vessel coronary artery disease with an 85% lesion in the proximal LAD. Mild disease in the left circumflex and the right coronary artery. Intact LV systolic function. Bare-metal stent placement to the LAD lesion with a 0% residual. Signed by : Topher Dewey MD Electronically Approved : 10/31/2018 15:12:35
[2018-10-31] MEDS ORDERED: amLODIPine BESYLATE 5 MG TABLET PO ONE (15:30)
[2018-10-31] MEDS ORDERED: ACETAMINOPHEN 325 MG TABLET. PO PRN (16:45)
[2018-10-31] MEDS ORDERED: ATORVASTATIN CALCIUM 20 MG TABLET PO SCH (21:00)
[2018-10-31] MEDS: METOPROLOL TART IMMED RELEASE 25 MG TABLET. PO SCH (21:00)
[2018-10-31] MEDS ORDERED: ATORVASTATIN CALCIUM 40 MG TABLET. PO SCH (21:00)
[2018-10-31] MEDS: INSULIN GLARGINE SYRINGE. SQ SCH (21:00)
[2018-10-31 23:08] LABS: HEMOGLOBIN A1C 10.7 % (4.8-5.6)
[2018-11-01 03:00] VITALS: BP 133/88
[2018-11-01 07:00] VITALS: BP 130/73
[2018-11-01] MEDS ORDERED: ASPIRIN ENTERIC COATED 325 MG TABLET.DR. PO SCH (08:00)
[2018-11-01] MEDS ORDERED: CLOPIDOGREL BISULFATE 75 MG TABLET PO SCH (08:00)
[2018-11-01] MEDS: METOPROLOL TART IMMED RELEASE 25 MG TABLET. PO SCH (08:42)
[2018-11-01] MEDS: LISINOPRIL 10 MG TABLET PO SCH (08:42)
[2018-11-01] MEDS: INSULIN LISPRO 300 UNITS/3 ML VIAL. SQ SCH ×2 (08:46→12:25)
--- NOTE | 2018-11-01 10:09 | PDOC ---
[employer] PROGRESS NOTE Chief Complaint Chief Complaint chest pain History of Present Illness History of Present Illness 11/01/18 Pt was seen at bedside. Pt had a bare metal stent placed in her LAD on 10/31/18. Pt was pleasant and feels better. DIVYA RN 10/31/18 Pt was seen in the cardiac lab support service tech DIVYA SANCHES Vitals/I&O Vitals/I&O: Vital Signs Date Time Temp Pulse Resp B/P (MAP) Pulse Ox O2 Delivery O2 Flow Rate FiO2 11/01/18 08:46 88 130/73 11/01/18 07:00 98.4 16 98 Room Air 98.4 10/31/18 11:26 2.0 I & O 10/31/18 10/31/18 11/01/18 15:00 23:00 07:00 Intake Total 500 ml 540 ml 120 ml Balance 500 ml 540 ml 120 ml Physical Exam Physical Exam: General: Alert, Oriented X3, Cooperative, No acute distress Heart: Regular rate (SR), Normal S1, Normal S2, No murmurs Abdomen: Soft, No tenderness Extremities: No edema Skin: No breakdown, No significant lesion Labs Labs: Laboratory Tests Test 10/31/18 11:46 10/31/18 17:16 10/31/18 20:44 11/01/18 07:54 Glucose (Fingerstick) 203 mg/dL (70-99) 316 mg/dL (70-99) 304 mg/dL (70-99) 247 mg/dL (70-99) Review of Systems Review of Systems: Pt does not co pain Pt does not co headache Assessment and Plan Assessmemt and Plan Problems Medical Problems: (1) Diabetic peripheral neuropathy Status: Chronic (2) HLD (hyperlipidemia) Status: Chronic (3) Hyperglycemia Status: Acute (4) Hypertension Status: Chronic (5) Insulin dependent diabetes mellitus Status: Chronic (6) NSTEMI (non-ST elevated myocardial infarction) Status: Acute Assessment Chest pain NSTEMI Hyperglycemia Diabetic peripheral neuropathy Hypertension Plan Discharge when OK with Cardiology Cardiac monitoring Home meds Anticoagulation per cardio Full code Comment Review of Relevant I have reviewed the following items fermin (where applicable) has been applied. Medications: Current Medications Medications (Trade) Dose Ordered Sig/[place] Route PRN Reason Start Time Stop Time Status Last Admin Dose Admin Heparin Sodium/ Sodium Chloride (HEPARIN for ARTERIAL LINE FLUSH) 1,000 unit 1X ONCE IART 10/31/18 10:15 10/31/18 10:47 DC 10/31/18 11:26 Heparin Sodium/ Sodium Chloride (HEPARIN for ARTERIAL LINE FLUSH) 1,000 unit 1X ONCE IART 10/31/18 10:15 10/31/18 10:47 DC 10/31/18 11:26 Midazolam HCl (Versed) 5 mg 1X ONCE IV 10/31/18 10:15 10/31/18 10:47 DC 10/31/18 11:26 Fentanyl Citrate (Fentanyl 2ml Vial) 100 mcg 1X ONCE IV 10/31/18 10:15 10/31/18 10:47 DC 10/31/18 11:26 Iodixanol (Visipaque 320) 100 ml 1X ONCE IART 10/31/18 10:15 10/31/18 10:47 DC 10/31/18 11:26 Lidocaine HCl (Lidocaine 1% 20ml Vial) 20 ml 1X ONCE INJ 10/31/18 10:15 10/31/18 10:47 DC 10/31/18 11:26 Bivalirudin (Angiomax) 250 mg 1X ONCE IV 10/31/18 10:32 10/31/18 10:48 DC 10/31/18 11:26 Clopidogrel Bisulfate (Plavix) 600 mg 1X ONCE PO 10/31/18 11:00 10/31/18 11:01 DC 10/31/18 11:26 Aspirin (Unique Aspirin) 325 mg 1X ONCE PO 10/31/18 11:00 10/31/18 11:01 DC 10/31/18 11:26 Sodium Chloride 1,000 ml @ 75 mls/hr [id number] IV 10/31/18 12:02 10/31/18 20:01 DC 10/31/18 12:31 Aspirin (Ecotrin) 325 mg DAILYWBKFT PO 11/01/18 08:00 11/01/18 08:46 Clopidogrel Bisulfate (Plavix) 75 mg DAILYWBKFT PO 11/01/18 08:00 11/01/18 08:46 Metoprolol Tartrate (Lopressor) 12.5 mg BID PO 10/31/18 21:00 11/01/18 08:46 Atorvastatin Calcium (Lipitor) 40 mg QHS PO 10/31/18 21:00 10/31/18 22:18 Lisinopril (Prinivil) 10 mg DAILY PO 10/31/18 13:30 11/01/18 08:46 Amlodipine Besylate (Norvasc) 5 mg 1X ONCE PO 10/31/18 15:30 10/31/18 15:31 DC 10/31/18 15:33 Acetaminophen (Tylenol) 650 mg PRN Q6HRS PRN PO HEADACHE 10/31/18 16:45 10/31/18 17:17 MINH SMALLWOOD III DO Nov 01, 2018 10:09
[2018-11-01 11:00] VITALS: BP 124/74
[2018-11-01] MEDS ORDERED: CLOP75TA PO (13:47)
[2018-11-01] MEDS ORDERED: METO25TA4 PO (13:47)
[2018-11-01] MEDS ORDERED: ATOR40TA59 PO (13:47)
[2018-11-01] MEDS ORDERED: LISI10TA2 PO (13:47)
[2018-11-01] MEDS ORDERED: ASPI325T11 PO (13:49)
--- NOTE | 2018-11-01 13:53 | PDOC ---
CARDIO Progress Notes Date and Time Date of Service 11/01/18 Time of Evaluation 1315 Subjective Subjective: No Chest Pain, No shortness of breath, Other (slightly nauseated ) Vitals Vitals Vital Signs Date Time Temp Pulse Resp B/P (MAP) Pulse Ox O2 Delivery O2 Flow Rate FiO2 11/01/18 11:00 98.4 82 16 124/74 (91) 97 Room Air 98.4 10/31/18 11:26 2.0 Weight Weight [ ] Input and Output Intake and Output l Intake and Output 11/01/18 07:00 Intake Total 1160 ml Balance 1160 ml Intake Oral 1160 ml # Voids 4 Laboratory Labs Laboratory Tests Test 10/31/18 17:16 10/31/18 20:44 11/01/18 07:54 11/01/18 11:52 Glucose (Fingerstick) 316 mg/dL (70-99) 304 mg/dL (70-99) 247 mg/dL (70-99) 263 mg/dL (70-99) Physical Exam HEENT: Neck Supple W Full Motion Chest: Symmetric LUNGS: Clear to Auscultation Heart: S1S2, RRR, no gallops, no murmurs Abdomen: Soft N/T Extremities: No Edema, Other (right groin arteriotomy site soft, clean, and dry. Neurovascular status intact.) Neurology: alert, oriented, follow commands Assessment Assessment 1. NSTEMI; Echo with preserved LV systolic function 2. CAD; s/p PCI/BMS to the proximal LAD 3. Hypertension; controlled 4. Hyperlipidemia 5. Diabetes, II; uncontrolled 6. Tobaccoism 7. Obesity Recommendations Secondary prevention including DAPT with ASA/ Plavix. Continue statin, BB, ACEi Lifestyle modification Cardiac rehab referral Reinforced smoking cessation Provided with 1month supply of Vascepa. Unfortunately, discount card with not apply to [place] Medicaid. Will have office apply for assistance program JOHN BACK APRN Nov 01, 2018 13:53
[2018-11-01] MEDS ORDERED: ICOS1CAP PO (15:37)
[2018-11-01] MEDS ORDERED: METOPROLOL TART IMMED RELEASE 50 MG TABLET. PO SCH (15:45)
[2018-11-02] MEDS ORDERED: ASPIRIN ENTERIC COATED 81 MG TABLET.DR. PO SCH (08:00)
== END 2018-11-01 13:30 | disposition home or self-care (01) | DRG 248 ==
LOC: ER 13:58 → ED HOLD 18:45 → OBSVTOIN 20:21 → 2 NORTH 22:25
PROVIDERS: ADMIT Internal Medicine; ATTEND Internal Medicine
PROC: 4A023N7 Measurement of Cardiac Sampling and Pressure, Left Heart, Percutaneous Approach (ICD-10-PCS; principal; 2018-10-31)
PROC: 02703DZ Dilation of Coronary Artery, One Artery with Intraluminal Device, Percutaneous Approach (ICD-10-PCS; 2018-10-31)
PROC: B2111ZZ Fluoroscopy of Multiple Coronary Arteries using Low Osmolar Contrast (ICD-10-PCS; 2018-10-31)
PROC: B2151ZZ Fluoroscopy of Left Heart using Low Osmolar Contrast (ICD-10-PCS; 2018-10-31)
DX: I21.4 Non-ST elevation (NSTEMI) myocardial infarction (principal); E43 Unspecified severe protein-calorie malnutrition; I25.10 Atherosclerotic heart disease of native coronary artery without angina pectoris; J44.9 Chronic obstructive pulmonary disease, unspecified; I10 Essential (primary) hypertension; E78.5 Hyperlipidemia, unspecified; F17.210 Nicotine dependence, cigarettes, uncomplicated; E11.42 Type 2 diabetes mellitus with diabetic polyneuropathy; E66.9 Obesity, unspecified; E78.1 Pure hyperglyceridemia; E11.65 Type 2 diabetes mellitus with hyperglycemia; Z68.33 Body mass index [BMI] 33.0-33.9, adult; Z98.891 History of uterine scar from previous surgery; Z79.4 Long term (current) use of insulin; Z88.8 Allergy status to other drugs, medicaments and biological substances; Z83.3 Family history of diabetes mellitus; Z82.49 Family history of ischemic heart disease and other diseases of the circulatory system
CPT/HCPCS: 92928; 93458; 96365; 96366; 96376; 99285; G0269; 36415; 71045; 80048; 80061; 80076; 80307; 81025; 82962; 83036; 83735; 84443; 84484; 85025; 85520; 85610; 93005; 93306; 99152; 99153; C1725; C1760; C1769; C1876; C1887; C1892; G0378; G0379; J0583; J1644; J1815; J2250; J2270; J2405; J3010; J3490; J7030; Q0164; Q9967; C1771

== ENCOUNTER 2018-11-03 19:47 | Emergency (ER) | payer OTHER ==
[~2018-11-03] VITALS: Ht 175.3 cm; Wt 103.4 kg
[~2018-11-03 19:47] MED LIST: ASPI325T11 PO; ATOR40TA59 PO; CLOP75TA PO; ICOS1CAP PO; INSU100V13 SQ; LISI10TA2 PO; METO25TA4 PO
[2018-11-03 20:01] VITALS: BP 159/97
--- NOTE | 2018-11-03 20:10 | PHYS DOC ---
Past Medical History Past Medical History: COPD, Diabetes-Type II, [place] Past Surgical History: Additional Past Surgical Histo: STENTS PLACED Alcohol Use: None Drug Use: None Adult General Chief Complaint Chief Complaint: ALLERGIC REACTION HPI HPI 33-year-old female with history of coronary artery disease, hypertension, hyperlipidemia presents to the emergency Department with complaints of petechial rash. Patient was discharged on November 01, 2018 after bare-metal stent placed to her LAD. Patient was started on aspirin and Plavix at that time and discharged. She states today she noticed a petechial rash throughout her body. She denies any hematuria or blood in her stool. Patient has any chest pain, shortness of breath, nausea, vomiting, abdominal pain. She states given the progression of the petechiae, she presented to the ER for further evaluation. Review of Systems Review of Systems Constitutional: Denies fever or chills [] Respiratory: Denies cough or shortness of breath [] Cardiovascular: No additional information not addressed in HPI [] GI: Denies abdominal pain, nausea, vomiting, bloody stools or diarrhea [] Musculoskeletal: Denies back pain or joint pain [] Integument: Petechial rash located on arms, abdomen, thorax, back, legs Neurologic: Denies headache, focal weakness or sensory changes [] All other systems were reviewed and found to be within normal limits, except as documented in this note. Allergies Allergies Allergies Coded Allergies Type Severity Reaction Last Updated Verified hydrocodone Allergy Intermediate 10/30/18 Yes vancomycin Allergy Intermediate 10/30/18 Yes Physical Exam Physical Exam Constitutional: Well developed, well nourished, no acute distress, non-toxic appearance. [] HENT: Normocephalic, atraumatic, bilateral external ears normal, oropharynx moist, no oral exudates, nose normal. [] Eyes: PERRLA, EOMI, conjunctiva normal, no discharge. [] Cardiovascular:Heart rate regular rhythm, no murmur [] Lungs & Thorax: Bilateral breath sounds clear to auscultation [] Abdomen: Bowel sounds normal, soft, no tenderness, no masses, no pulsatile masses. [] Skin: Warm, dry, no erythema, petechial rash appreciated to extremities, abdomen Extremities: No tenderness, no cyanosis, no edema. [] Neurologic: Alert and oriented X 3, no focal deficits noted. [] Psychologic: Affect normal, judgement normal, mood normal. [] Current Patient Data Vital Signs Vital Signs Date Time Temp Pulse Resp B/P (MAP) Pulse Ox O2 Delivery O2 Flow Rate FiO2 11/03/18 20:01 98.5 89 16 159/97 (117) 98 Room Air 98.5 Lab Values Laboratory Tests Test 11/03/18 20:07 11/03/18 20:19 Urine Collection Type Unknown Urine Color Yellow Urine Clarity Clear Urine pH 6.0 Urine Specific [place] >=1.030 Urine Protein Negative mg/dL (NEG-TRACE) Urine Glucose (UA) >=1000 mg/dL (NEG) Urine Ketones (Stick) Negative mg/dL (NEG) Urine Blood Negative (NEG) Urine Nitrite Negative (NEG) Urine Bilirubin Negative (NEG) Urine Urobilinogen Dipstick 0.2 mg/dL (0.2 mg/dL) Urine Leukocyte Esterase Negative (NEG) Urine RBC 0 /HPF (0-2) Urine WBC 0 /HPF (0-4) Urine Squamous Epithelial Cells Many /LPF Urine Bacteria 0 /HPF (0-FEW) Urine Mucus Marked /LPF White Blood Count 8.5 x10^3/uL (4.0-11.0) Red Blood Count 4.88 x10^6/uL (3.50-5.40) Hemoglobin 14.2 g/dL (12.0-15.5) Hematocrit 41.3 % (36.0-47.0) Mean Corpuscular Volume 85 fL (79-100) Mean Corpuscular Hemoglobin 29 pg (25-35) Mean Corpuscular Hemoglobin Concent 35 g/dL (31-37) Red Cell Distribution Width 14.1 % (11.5-14.5) Platelet Count 357 x10^3/uL (140-400) Neutrophils (%) (Auto) 69 % (31-73) Lymphocytes (%) (Auto) 22 % (24-48) L Monocytes (%) (Auto) 7 % (0-9) Eosinophils (%) (Auto) 2 % (0-3) Basophils (%) (Auto) 0 % (0-3) Neutrophils # (Auto) 5.9 x10^3/uL (1.8-7.7) Lymphocytes # (Auto) 1.9 x10^3/uL (1.0-4.8) Monocytes # (Auto) 0.6 x10^3/uL (0.0-1.1) Eosinophils # (Auto) 0.1 x10^3/uL (0.0-0.7) Basophils # (Auto) 0.0 x10^3/uL (0.0-0.2) Platelet Estimate Adequate (ADEQUATE) Prothrombin Time 12.6 SEC (11.7-14.0) Prothrombin Time INR 1.0 (0.8-1.1) Sodium Level 138 mmol/L (136-145) Potassium Level 3.6 mmol/L (3.5-5.1) Chloride Level 98 mmol/L (98-107) Carbon Dioxide Level 31 mmol/L (21-32) Anion Gap 9 (6-14) Blood Urea Nitrogen 10 mg/dL (7-20) Creatinine 0.6 mg/dL (0.6-1.0) Estimated GFR (Cockcroft-Gault) 113.8 BUN/Creatinine Ratio 17 (6-20) Glucose Level 342 mg/dL (70-99) H Calcium Level 9.3 mg/dL (8.5-10.1) Total Bilirubin 0.5 mg/dL (0.2-1.0) Aspartate Amino Transferase (AST) 13 U/L (15-37) L Alanine Aminotransferase (ALT) 25 U/L (14-59) Alkaline Phosphatase 87 U/L (46-116) Total Protein 7.7 g/dL (6.4-8.2) Albumin 3.4 g/dL (3.4-5.0) Albumin/Globulin Ratio 0.8 (1.0-1.7) L Laboratory Tests 11/03/18 20:19 Laboratory Tests 11/03/18 20:19 EKG EKG [] Radiology/Procedures Radiology/Procedures [] Course & Med Decision Making Course & Med Decision Making Pertinent Labs and Imaging studies reviewed. (See chart for details) []33-year-old female with history of coronary artery disease, hypertension, hyperlipidemia presents to the emergency Department with complaints of petechial rash. Patient was discharged on November 01, 2018 after bare-metal stent placed to her LAD. Patient was started on aspirin and Plavix at that time and discharged. She states today she noticed a petechial rash throughout her body. She denies any hematuria or blood in her stool. Patient has any chest pain, kiko rtness of breath, nausea, vomiting, abdominal pain. She states given the progression of the petechiae, she presented to the ER for further evaluation. Labs reviewed, platelet count 357, INR 1.0, hemoglobin within normal limits. No evidence of acute bleeding. Petechial rash is likely secondary to medication. I have recommended discontinuation of aspirin with return precautions. We'll continue Plavix given her recent stent placement. However, if petechial rash worsens, she'll need further evaluation with blood work again and consideration of discontinuation of Plavix. No evidence of ITP, TTP appreciated on exam. Discussed findings with patient will plan for discharge home. Return precautions provided she is understanding. Dragon Disclaimer Dragon Disclaimer This electronic medical record was generated, in whole or in part, using a voice recognition dictation system. Departure Departure Impression: Primary Impression: Petechial rash Disposition: 01 HOME, SELF-CARE Condition: STABLE Referrals: NO PCP (PCP) Patient Instructions: Rash Additional Instructions: Likely drug related - however given recent stent will continue plavix given platelet count normal Hemoglobin and Platelet count normal Urine without evidence of hematuria Discontinue ASA Return to the ER with worsening rash, altered mental status, blood in urine or stool KEYA TSANG MD Nov 03, 2018 20:10
[2018-11-03 20:18] LABS: BILIRUBIN,URINE NEGATIVE (NEG); CLARITY,URINE CLEAR; COLOR,URINE YELLOW; NITRITE,URINE NEGATIVE (NEG); PROTEIN,URINE NEGATIVE (NEG-TRACE); UROBILINOGEN,URINE 0.2 mg/dL (0.2 mg/dL)
[2018-11-03 20:31] LABS: BASO % 0 % (0-3); EOS # 0.1 x10^3/uL (0.0-0.7); EOS % 2 % (0-3); HEMATOCRIT 41.3 % (36.0-47.0); HEMOGLOBIN 14.2 g/dL (12.0-15.5); LYMPH # 1.9 x10^3/uL (1.0-4.8); LYMPH % 22 % (24-48); MEAN CORPUSCULAR HEMOGLOBIN 29 pg (25-35); MEAN CORPUSCULAR HGB CONC 35 g/dL (31-37); MEAN CORPUSCULAR VOLUME 85 fL (79-100); MONO # 0.6 x10^3/uL (0.0-1.1); MONO % 7 % (0-9); NEUT # 5.9 x10^3/uL (1.8-7.7); NEUT % 69 % (31-73); PLATELET COUNT 357 x10^3/uL (140-400); RED BLOOD COUNT 4.88 x10^6/uL (3.50-5.40); RED CELL DISTRIBUTION WIDTH 14.1 % (11.5-14.5); WHITE BLOOD COUNT 8.5 x10^3/uL (4.0-11.0)
[2018-11-03 20:34] LABS: BACTERIA,URINE 0 /HPF (0-FEW); RBC,URINE 0 /HPF (0-2); SQUAMOUS EPITHELIAL CELL,UR MANY /LPF; WBC,URINE 0 /HPF (0-4)
[2018-11-03 20:37] LABS: CALCIUM 9.3 mg/dL (8.5-10.1); CREATININE 0.6 mg/dL (0.6-1.0); GFR 113.8; POTASSIUM 3.6 mmol/L (3.5-5.1)
[2018-11-03 20:41] LABS: PROTHROMBIN TIME PATIENT 12.6 SEC (11.7-14.0)
[2018-11-03 20:43] LABS: ALBUMIN 3.4 g/dL (3.4-5.0); ALBUMIN/GLOBULIN RATIO 0.8 (1.0-1.7); TOTAL BILIRUBIN 0.5 mg/dL (0.2-1.0); TOTAL PROTEIN 7.7 g/dL (6.4-8.2)
[2018-11-03 21:03] LABS: PLT ESTIMATE ADEQUATE (ADEQUATE)
== END 2018-11-03 21:20 | disposition home or self-care (01) ==
LOC: ER 19:47
DX: R23.3 Spontaneous ecchymoses (principal); J44.9 Chronic obstructive pulmonary disease, unspecified; E11.9 Type 2 diabetes mellitus without complications; I25.2 Old myocardial infarction; Z88.1 Allergy status to other antibiotic agents; Z88.5 Allergy status to narcotic agent
CPT/HCPCS: 36415; 80053; 81001; 85025; 85610; 99284

== ENCOUNTER 2019-03-12 00:20 | Observation (INO) | payer OTHER ==
[~2019-03-12] VITALS: Ht 175.3 cm; Wt 102.7 kg
[2019-03-12] MEDS ORDERED: NITROGLYCERIN SUBLINGUAL 0.4 MG BOTTLE OF 25. SL PRN (04:00)
--- NOTE | 2019-03-12 04:02 | PHYS DOC ---
Past Medical History Past Medical History: COPD, Diabetes-Type II, [place] Past Surgical History: Additional Past Surgical Histo: STENTS PLACED Alcohol Use: None Drug Use: None Adult General Chief Complaint Chief Complaint: CHEST PAIN HPI HPI Patient is a 34 year old male with history of CAD and stent placement who presents with sternal chest pain radiating to left jaw and bilateral shoulders. Patient reports mild dyspnea. Symptom onset intermittent starting 4 hours prior to ED arrival. Patient full-strength aspirin without relief. Denies shortness of breath, nausea and sweats. No leg pain or swelling. Patient is compliant with medications. She has not follow-up with investment recovery technician since treated the hospital last fall. No abdominal pain. No leg pain or swelling. States her last menstrual period started 5 days ago [] Review of Systems Review of Systems ROS as per HPI All other systems were reviewed and found to be within normal limits, except as documented in this note. Current Medications Current Medications Current Medications Medications (Trade) Dose Ordered Sig/G[place]roy Start Time Stop Time Status Last Admin Dose Admin Nitroglycerin (Nitrostat) 0.4 mg PRN Q5MIN PRN 03/12/19 04:00 03/12/19 04:10 0.4 MG Allergies Allergies Allergies Coded Allergies Type Severity Reaction Last Updated Verified hydrocodone Allergy Intermediate 10/30/18 Yes vancomycin Allergy Intermediate 10/30/18 Yes Physical Exam Physical Exam Constitutional: Well developed, well nourished, no acute distress, non-toxic appearance. [] HENT: Normocephalic, atraumatic, bilateral external ears normal, oropharynx moist, nose normal. [] Eyes: PERRLA, EOMI, conjunctiva normal. [] Neck: Normal range of motion, no tenderness. [] Cardiovascular:Heart rate regular rhythm, no murmur [] Lungs & Thorax: Bilateral breath sounds clear to auscultation [] Abdomen: Bowel sounds normal, soft, no tenderness. [] Skin: Warm, dry, no erythema, no rash. [] Back: No tenderness, no CVA tenderness. [] Extremities: No tenderness, no edema. [] Neurologic: Alert and oriented X 3, normal motor function, normal sensory function, no focal deficits noted. [] Psychologic: Affect normal, judgement normal, mood normal. [] Current Patient Data Vital Signs Vital Signs Date Time Temp Pulse Resp B/P (MAP) Pulse Ox O2 Delivery O2 Flow Rate FiO2 03/12/19 02:18 84 18 133/90 (104) 95 Room Air Lab Values Laboratory Tests Test 03/12/19 03:58 White Blood Count 10.1 x10^3/uL (4.0-11.0) Red Blood Count 5.16 x10^6/uL (3.50-5.40) Hemoglobin 14.7 g/dL (12.0-15.5) Hematocrit 43.3 % (36.0-47.0) Mean Corpuscular Volume 84 fL (79-100) Mean Corpuscular Hemoglobin 29 pg (25-35) Mean Corpuscular Hemoglobin Concent 34 g/dL (31-37) Red Cell Distribution Width 14.4 % (11.5-14.5) Platelet Count 357 x10^3/uL (140-400) Neutrophils (%) (Auto) 60 % (31-73) Lymphocytes (%) (Auto) 30 % (24-48) Monocytes (%) (Auto) 8 % (0-9) Eosinophils (%) (Auto) 2 % (0-3) Basophils (%) (Auto) 1 % (0-3) Neutrophils # (Auto) 6.1 x10^3/uL (1.8-7.7) Lymphocytes # (Auto) 3.0 x10^3/uL (1.0-4.8) Monocytes # (Auto) 0.8 x10^3/uL (0.0-1.1) Eosinophils # (Auto) 0.2 x10^3/uL (0.0-0.7) Basophils # (Auto) 0.0 x10^3/uL (0.0-0.2) Sodium Level 138 mmol/L (136-145) Potassium Level 4.3 mmol/L (3.5-5.1) Chloride Level 100 mmol/L (98-107) Carbon Dioxide Level 28 mmol/L (21-32) Anion Gap 10 (6-14) Blood Urea Nitrogen 17 mg/dL (7-20) Creatinine 0.6 mg/dL (0.6-1.0) Estimated GFR (Cockcroft-Gault) 113.1 BUN/Creatinine Ratio 28 (6-20) H Glucose Level 411 mg/dL (70-99) H Calcium Level 9.4 mg/dL (8.5-10.1) Total Bilirubin 0.4 mg/dL (0.2-1.0) Aspartate Amino Transferase (AST) 10 U/L (15-37) L Alanine Aminotransferase (ALT) 23 U/L (14-59) Alkaline Phosphatase 88 U/L (46-116) Troponin I Quantitative < 0.017 ng/mL (0.000-0.055) Total Protein 7.1 g/dL (6.4-8.2) Albumin 3.6 g/dL (3.4-5.0) Albumin/Globulin Ratio 1.0 (1.0-1.7) Urine Opiates Screen Neg (NEG) Urine Methadone Screen Neg (NEG) Urine Barbiturates Neg (NEG) Urine Phencyclidine Screen Neg (NEG) Urine Amphetamine/Methamphetamine Neg (NEG) Urine Benzodiazepines Screen Neg (NEG) Urine Cocaine Screen Neg (NEG) Urine Cannabinoids Screen Neg (NEG) Urine Ethyl Alcohol Neg (NEG) Laboratory Tests 03/12/19 03:58 Laboratory Tests 03/12/19 03:58 EKG EKG [eKG: REVIWED] Radiology/Procedures Radiology/Procedures [Chest x-ray: No acute cardiopulmonary disease per radiology report] Course & Med Decision Making Course & Med Decision Making Pertinent Labs and Imaging studies reviewed. (See chart for details) [Atypical chest pain with history of CAD or. Aspirin given prior to ED arrival. EKG troponin nonacute. Symptoms improved with nitroglycerin. Both the hospitalist service with anticipated cardiology consult.] Dragon Disclaimer Dragon Disclaimer This electronic medical record was generated, in whole or in part, using a voice recognition dictation system. Departure Departure Impression: Primary Impression: ACS (acute coronary syndrome) Additional Impression: Hyperglycemia Disposition: 09 ADMITTED INPATIENT Condition: STABLE Referrals: NO PCP (PCP) Problem Qualifiers KAREY CONNER DO Mar 12, 2019 04:02
[2019-03-12 04:08] LABS: BASO % 1 % (0-3); EOS # 0.2 x10^3/uL (0.0-0.7); EOS % 2 % (0-3); HEMATOCRIT 43.3 % (36.0-47.0); HEMOGLOBIN 14.7 g/dL (12.0-15.5); LYMPH % 30 % (24-48); MEAN CORPUSCULAR HEMOGLOBIN 29 pg (25-35); MEAN CORPUSCULAR HGB CONC 34 g/dL (31-37); MEAN CORPUSCULAR VOLUME 84 fL (79-100); MONO # 0.8 x10^3/uL (0.0-1.1); MONO % 8 % (0-9); NEUT # 6.1 x10^3/uL (1.8-7.7); NEUT % 60 % (31-73); PLATELET COUNT 357 x10^3/uL (140-400); RED BLOOD COUNT 5.16 x10^6/uL (3.50-5.40); RED CELL DISTRIBUTION WIDTH 14.4 % (11.5-14.5); WHITE BLOOD COUNT 10.1 x10^3/uL (4.0-11.0)
[2019-03-12 04:15] LABS: BARBITURATES NEG (NEG); BENZODIAZEPINES NEG (NEG); CANNABINOIDS NEG (NEG); COCAINE NEG (NEG); METHADONE NEG (NEG); OPIATES NEG (NEG); PHENCYCLIDINE NEG (NEG)
[2019-03-12 04:16] LABS: CALCIUM 9.4 mg/dL (8.5-10.1); CREATININE 0.6 mg/dL (0.6-1.0); GFR 113.1; POTASSIUM 4.3 mmol/L (3.5-5.1)
[2019-03-12 04:23] LABS: ALBUMIN 3.6 g/dL (3.4-5.0); TOTAL BILIRUBIN 0.4 mg/dL (0.2-1.0); TOTAL PROTEIN 7.1 g/dL (6.4-8.2)
--- NOTE | 2019-03-12 04:28 | RAD ---
EXAM: AP View of the chest DATE: 03/12/2019 3:57 AM INDICATION: Chest pain COMPARISON: 10/30/2018 FINDINGS: The heart is not enlarged. Mediastinal and hilar contours are normal. No focal parenchymal airspace opacity. No pleural effusion or pneumothorax. IMPRESSION: 1. No radiographic evidence for acute cardiopulmonary process. Electronically signed by: Alexander Marinelli MD (03/12/2019 4:25 AM) [id number]
[2019-03-12 04:33] LABS: AMPHETAMINE/METHAMPHETAMINE NEG (NEG)
[2019-03-12 05:25] VITALS: BP 128/87
[2019-03-12] MEDS ORDERED: IV NORMAL SALINE 1000ML BAG 1,000 ML IV ONE (06:00)
[2019-03-12] MEDS ORDERED: ONDANSETRON PF 4 MG/2 ML VIAL. IV PRN (06:00)
[2019-03-12 07:00] VITALS: BP 118/73
--- NOTE | 2019-03-12 07:01 | EKG ---
[facility] [address] [place] [address] Test Date: 2019-03-12 Test Time: 00:30:11 Pat Name: ISMAEL GRANT Department: Room: Gender: F [employer]ch[employer] Lead: : [id number] Requested By: KAREY CONNER Order Number: [id number] Reading MD: Measurements Intervals [place] Rate: 77 P: 41 ME: 150 QRS: 40 QRSD: 90 T: 38 QT: 386 QTc: 439 Interpretive Statements SINUS RHYTHM LEFT ATRIAL ABNORMALITY ABNORMAL ECG RI6.01 No previous ECG available for comparison
--- NOTE | 2019-03-12 07:05 | NUR ---
late entry IV sodium chloride bolus stop time was 704.
[2019-03-12 11:00] VITALS: BP 128/80
[2019-03-12] MEDS ORDERED: DEXTROSE 50% 25 GM / 50ML DISP.SYRIN. IV PRN (11:00)
[2019-03-12] MEDS ORDERED: ACETAMINOPHEN 500 MG TABLET PO PRN (11:00)
[2019-03-12] MEDS ORDERED: ONDANSETRON PF 4 MG/2 ML VIAL. IVP PRN (11:00)
[2019-03-12] MEDS ORDERED: ASPIRIN ENTERIC COATED 325 MG TABLET.DR. PO SCH (11:00)
[2019-03-12] MEDS: METOPROLOL TART IMMED RELEASE 25 MG TABLET. PO SCH ×2 (11:00→21:08)
[2019-03-12] MEDS ORDERED: IV DEXTROSE 5% 250 ML BAG. IV PRN (11:00)
[2019-03-12 11:23] LABS: CHOLESTEROL/HDL RATIO 3.5
[2019-03-12] MEDS ORDERED: PANTOPRAZOLE 40 MG TABLET.DR. PO ONE (11:30)
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
[2019-03-12] MEDS: INSULIN LISPRO 300 UNITS/3 ML VIAL. SQ SCH ×2 (12:00→17:45)
[2019-03-12] MEDS ORDERED: INSULIN LISPRO 300 UNITS/3 ML VIAL. SQ ONE (12:00)
--- NOTE | 2019-03-12 12:08 | NUR ---
SS following for discharge planning. SS reviewed pt chart. Pt is from home and is currently on room air. SS will continue to follow for discharge planning.
[2019-03-12] MEDS: INSULIN GLARGINE SYRINGE. SQ SCH ×2 (12:19→21:14)
--- NOTE | 2019-03-12 13:37 | RAD ---
EXAM: Abdomen sonogram. HISTORY: Cholelithiasis. Right upper quadrant pain. TECHNIQUE: Sonographic imaging of the abdomen was performed. COMPARISON: None. FINDINGS: The liver is normal in size. There is hepatic steatosis. No focal hepatic lesion is seen. There is cholelithiasis. There is no gallbladder wall thickening or pericholecystic fluid. The right kidney, pancreas and inferior vena cava are unremarkable. The common bile duct is normal in caliber. IMPRESSION: 1. Hepatic steatosis. 2. Cholelithiasis. Electronically signed by: Ginny Loera MD (03/12/2019 1:34 PM) [facility] [place]
--- NOTE | 2019-03-12 14:15 | PDOC1 ---
History and Physical Date of Admission Date of Admission DATE: 03/12/19 TIME: 14:07 Identification/Chief Complaint Chief Complaint cp, epig pain Source Source: Caregiver, Chart review, Patient History of Present Illness History of Present Illness 34 yo obese white female, BMI 33, hx of 1 cardiac stent, CP, epig pain at rest, no identifiable precip or alleviating, MEntions RUQ pain, CArds has seen and ordered sono and showed fatty liver and GB stones, HEr CXR is normal and trops x 2 neg, WIll consult GS and make POst MN just Nelson amato RN Past Medical History Cardiovascular: HTN, Hyperlipidemia Pulmonary: No pertinent hx CENTRAL NERVOUS SYSTEM: Other GI: No pertinent hx Heme/Onc: No pertinent hx Hepatobiliary: No pertinent hx Psych: No pertinent hx Musculoskeletal: Other Rheumatologic: No pertinent hx Infectious disease: No pertinent hx Renal/: No pertinent hx Endocrine: Diabetes Past Surgical History Past Surgical History: No pertinent history Family History Family History: Coronary Artery Disease, Diabetes, High Cholestrol, Hypertension Family History: Grandparents Social History Smoke: No ALCOHOL: none Drugs: None Current Problem List Problem List Problems Medical Problems: (1) Hyperglycemia Status: Acute Current Medications Current Medications Current Medications Nitroglycerin (Nitrostat) 0.4 mg PRN Q5MIN PRN SL CHEST PAIN Last administered on 03/12/19at 04:10; Start 03/12/19 at 04:00 Sodium Chloride 1,000 ml @ 1,000 mls/hr 1X ONCE IV Last administered on 03/12/19at 06:05; Start 03/12/19 at 06:00; Stop 03/12/19 at 06:59; Status DC Ondansetron HCl (Zofran) 4 mg PRN Q8HRS PRN IV NAUSEA/VOMITING; Start 03/12/19 at 06:00; Stop 03/13/19 at 05:59 Acetaminophen (Tylenol) 500 mg PRN Q6HRS PRN PO MILD PAIN / TEMP Last administered on 03/12/19at 12:15; Start 03/12/19 at 11:00 Ondansetron HCl (Zofran) 4 mg PRN Q6HRS PRN IVP NAUSEA/VOMITING; Start 03/12/19 at 11:00 Aspirin (Ecotrin) 325 mg DAILYWBKFT PO ; Start 1/28/20 at 11:00 Atorvastatin Calcium (Lipitor) 40 mg QHS PO ; Start 03/12/19 at 21:00 Lisinopril (Prinivil) 10 mg DAILY PO ; Start 03/12/19 at 11:00 Metoprolol Tartrate (Lopressor) 12.5 mg BID PO ; Start 03/12/19 at 11:00 Non-Formulary Medication (Icosapent Ethyl (Vascepa)) 2 gm BID PO ; Start 03/12/19 at 21:00; Status UNV Insulin Glargine (Lantus Syringe) 20 unit BID SQ Last administered on 03/12/19at 12:19; Start 03/12/19 at 12:00 Insulin Human Lispro (HumaLOG) 0-9 UNITS TIDWMEALS SQ ; Start 03/12/19 at 12:00 Dextrose (Dextrose 50%-Water Syringe) 12.5 gm PRN Q15MIN PRN IV SEE COMMENTS; Start 03/12/19 at 11:00 Dextrose (Iv Dextrose 5%) 250 ml PRN Q15MIN PRN IV SEE COMMENTS; Start 03/12/19 at 11:00 Pantoprazole Sodium (Protonix) 40 mg 1X ONCE PO ; Start 03/12/19 at 11:30; Stop 03/12/19 at 11:31; Status DC Pantoprazole Sodium (Protonix) 40 mg DAILYAC PO ; Start 03/13/19 at 07:30 Insulin Human Lispro (HumaLOG) 15 units 1X ONCE SQ Last administered on 03/12/19at 12:19; Start 03/12/19 at 12:00; Stop 03/12/19 at 12:01; Status DC Active Scripts Active Vascepa (Icosapent Ethyl) 1 Gm Capsule 2 Gm PO BID 30 Days Aspirin Ec (Aspirin) 325 Mg Tablet.dr 325 Mg PO DAILYWBKFT 30 Days Lisinopril 10 Mg Tablet 10 Mg PO DAILY 30 Days Metoprolol Tartrate 25 Mg Tablet 12.5 Mg PO BID 30 Days Atorvastatin Calcium 40 Mg Tablet 40 Mg PO QHS 30 Days Clopidogrel (Clopidogrel Bisulfate) 75 Mg Tablet 75 Mg PO DAILYWBKFT 30 Days Reported Levemir (Insulin Detemir) 100 Unit/1 Ml Vial 20 Unit SQ BID Allergies Allergies: Coded Allergies: hydrocodone (Verified Allergy, Intermediate, 10/30/18) vancomycin (Verified Allergy, Intermediate, 10/30/18) ROS Review of System as per hPI,a ll else 14 pt reviewed neg, she tolbert dno nausea or emesis Physical Exam General: Alert, Oriented X3, Cooperative, No acute distress HEENT: Atraumatic, PERRLA, EOMI, Mucous membr. moist/pink Lungs: Clear to auscultation, Normal air movement Heart: S1S2, RRR, no thrills, no rubs, no gallops, no murmurs Cardiovascular: S1, S2 Breasts: Normal, Rt breast nml w/o mass, Lt breast nml w/o mass, Nipples normal Abdomen: Normal bowel sounds, Soft, Other (Tender RUQ? minimal) Extremities: No clubbing, No cyanosis, No edema, Normal pulses, No tenderness/swelling Skin: No rashes, No breakdown, No significant lesion Neuro: Normal gait, Normal speech, Strength at 5/5 X4 ext, Normal tone, Sensation intact, Cranial nerves 3-12 NL, Reflexes 2+ Psych/Mental Status: Mental status NL, Mood NL Vitals Vitals Vital Signs Date Time Temp Pulse Resp B/P (MAP) Pulse Ox O2 Delivery O2 Flow Rate FiO2 03/12/19 11:00 98.2 77 18 128/80 (96) 97 Room Air 98.2 Labs Labs Laboratory Tests Test 03/12/19 03:58 03/12/19 09:06 03/12/19 11:48 03/12/19 12:00 White Blood Count 10.1 x10^3/uL (4.0-11.0) Red Blood Count 5.16 x10^6/uL (3.50-5.40) Hemoglobin 14.7 g/dL (12.0-15.5) Hematocrit 43.3 % (36.0-47.0) Mean Corpuscular Volume 84 fL (79-100) Mean Corpuscular Hemoglobin 29 pg (25-35) Mean Corpuscular Hemoglobin Concent 34 g/dL (31-37) Red Cell Distribution Width 14.4 % (11.5-14.5) Platelet Count 357 x10^3/uL (140-400) Neutrophils (%) (Auto) 60 % (31-73) Lymphocytes (%) (Auto) 30 % (24-48) Monocytes (%) (Auto) 8 % (0-9) Eosinophils (%) (Auto) 2 % (0-3) Basophils (%) (Auto) 1 % (0-3) Neutrophils # (Auto) 6.1 x10^3/uL (1.8-7.7) Lymphocytes # (Auto) 3.0 x10^3/uL (1.0-4.8) Monocytes # (Auto) 0.8 x10^3/uL (0.0-1.1) Eosinophils # (Auto) 0.2 x10^3/uL (0.0-0.7) Basophils # (Auto) 0.0 x10^3/uL (0.0-0.2) Sodium Level 138 mmol/L (136-145) Potassium Level 4.3 mmol/L (3.5-5.1) Chloride Level 100 mmol/L (98-107) Carbon Dioxide Level 28 mmol/L (21-32) Anion Gap 10 (6-14) Blood Urea Nitrogen 17 mg/dL (7-20) Creatinine 0.6 mg/dL (0.6-1.0) Estimated GFR (Cockcroft-Gault) 113.1 BUN/Creatinine Ratio 28 (6-20) Glucose Level 411 mg/dL (70-99) Calcium Level 9.4 mg/dL (8.5-10.1) Total Bilirubin 0.4 mg/dL (0.2-1.0) Aspartate Amino Transf (AST/SGOT) 10 U/L (15-37) Alanine Aminotransferase (ALT/SGPT) 23 U/L (14-59) Alkaline Phosphatase 88 U/L (46-116) Troponin I Quantitative < 0.017 ng/mL (0.000-0.055) < 0.017 ng/mL (0.000-0.055) < 0.017 ng/mL (0.000-0.055) Total Protein 7.1 g/dL (6.4-8.2) Albumin 3.6 g/dL (3.4-5.0) Albumin/Globulin Ratio 1.0 (1.0-1.7) Triglycerides Level 155 mg/dL (0-150) Cholesterol Level 180 mg/dL (0-200) LDL Cholesterol, Calculated 97 mg/dL (0-100) VLDL Cholesterol, Calculated 31 mg/dL (0-40) Non-HDL Cholesterol Calculated 128 mg/dL (0-129) HDL Cholesterol 52 mg/dL (40-60) Cholesterol/HDL Ratio 3.5 Urine Opiates Screen Neg (NEG) Urine Methadone Screen Neg (NEG) Urine Barbiturates Neg (NEG) Urine Phencyclidine Screen Neg (NEG) Urine Amphetamine/Methamphetamine Neg (NEG) Urine Benzodiazepines Screen Neg (NEG) Urine Cocaine Screen Neg (NEG) Urine Cannabinoids Screen Neg (NEG) Urine Ethyl Alcohol Neg (NEG) Glucose (Fingerstick) 374 mg/dL (70-99) Laboratory Tests Test 03/12/19 03:58 03/12/19 09:06 03/12/19 11:48 03/12/19 12:00 White Blood Count 10.1 x10^3/uL (4.0-11.0) Red Blood Count 5.16 x10^6/uL (3.50-5.40) Hemoglobin 14.7 g/dL (12.0-15.5) Hematocrit 43.3 % (36.0-47.0) Mean Corpuscular Volume 84 fL (79-100) Mean Corpuscular Hemoglobin 29 pg (25-35) Mean Corpuscular Hemoglobin Concent 34 g/dL (31-37) Red Cell Distribution Width 14.4 % (11.5-14.5) Platelet Count 357 x10^3/uL (140-400) Neutrophils (%) (Auto) 60 % (31-73) Lymphocytes (%) (Auto) 30 % (24-48) Monocytes (%) (Auto) 8 % (0-9) Eosinophils (%) (Auto) 2 % (0-3) Basophils (%) (Auto) 1 % (0-3) Neutrophils # (Auto) 6.1 x10^3/uL (1.8-7.7) Lymphocytes # (Auto) 3.0 x10^3/uL (1.0-4.8) Monocytes # (Auto) 0.8 x10^3/uL (0.0-1.1) Eosinophils # (Auto) 0.2 x10^3/uL (0.0-0.7) Basophils # (Auto) 0.0 x10^3/uL (0.0-0.2) Sodium Level 138 mmol/L (136-145) Potassium Level 4.3 mmol/L (3.5-5.1) Chloride Level 100 mmol/L (98-107) Carbon Dioxide Level 28 mmol/L (21-32) Anion Gap 10 (6-14) Blood Urea Nitrogen 17 mg/dL (7-20) Creatinine 0.6 mg/dL (0.6-1.0) Estimated GFR (Cockcroft-Gault) 113.1 BUN/Creatinine Ratio 28 (6-20) Glucose Level 411 mg/dL (70-99) Calcium Level 9.4 mg/dL (8.5-10.1) Total Bilirubin 0.4 mg/dL (0.2-1.0) Aspartate Amino Transf (AST/SGOT) 10 U/L (15-37) Alanine Aminotransferase (ALT/SGPT) 23 U/L (14-59) Alkaline Phosphatase 88 U/L (46-116) Troponin I Quantitative < 0.017 ng/mL (0.000-0.055) < 0.017 ng/mL (0.000-0.055) < 0.017 ng/mL (0.000-0.055) Total Protein 7.1 g/dL (6.4-8.2) Albumin 3.6 g/dL (3.4-5.0) Albumin/Globulin Ratio 1.0 (1.0-1.7) Triglycerides Level 155 mg/dL (0-150) Cholesterol Level 180 mg/dL (0-200) LDL Cholesterol, Calculated 97 mg/dL (0-100) VLDL Cholesterol, Calculated 31 mg/dL (0-40) Non-HDL Cholesterol Calculated 128 mg/dL (0-129) HDL Cholesterol 52 mg/dL (40-60) Cholesterol/HDL Ratio 3.5 Urine Opiates Screen Neg (NEG) Urine Methadone Screen Neg (NEG) Urine Barbiturates Neg (NEG) Urine Phencyclidine Screen Neg (NEG) Urine Amphetamine/Methamphetamine Neg (NEG) Urine Benzodiazepines Screen Neg (NEG) Urine Cocaine Screen Neg (NEG) Urine Cannabinoids Screen Neg (NEG) Urine Ethyl Alcohol Neg (NEG) Glucose (Fingerstick) 374 mg/dL (70-99) VTE Prophylaxis Ordered VTE Prophylaxis Devices: Yes VTE Pharmacological Prophylaxi: Yes Assessment/Plan Assessment/Plan Chest pain/epig pain RUQ pain, minimally tender on my exam but she says she was tender [employer] GB stones FAtty liver hx CAD 1 stent PLAn: Add GS consult, NPO post mN in case HOld off any OAC or ASA just in case sx Dw RN DAVID Mc MD Mar 12, 2019 14:15
[2019-03-12 15:00] VITALS: BP 117/78
[2019-03-12] MEDS: LISINOPRIL 10 MG TABLET PO SCH (16:05)
[2019-03-12 16:13] LABS: U PREG PATIENT NEGATIVE (NEG)
--- NOTE | 2019-03-12 16:57 | PDOC2 ---
CONSULT Date of Consult Date of Consult DATE: 03/12/19 TIME: 16:52 History of Present Illness Reason for Visit: The patient is a 34-year-old female who was admitted due to chest and abdominal pain. That the pain was located in the upper abdomen and lower chest with some radiation to the right upper quadrant. She admits to having a heart attack in October which was treated with percutaneous stent placement. She also provides a history of known gallstones with chronic recurrent bouts of upper abdominal pain. Past Medical History Cardiovascular: HTN, Hyperlipidemia Pulmonary: No pertinent hx CENTRAL NERVOUS SYSTEM: Other GI: No pertinent hx Heme/Onc: No pertinent hx Hepatobiliary: No pertinent hx Psych: No pertinent hx Musculoskeletal: Other Rheumatologic: No pertinent hx Infectious disease: No pertinent hx Renal/: No pertinent hx Endocrine: Diabetes Past Surgical History Past Surgical History: , Other (PCI/BMS to LAD) Family History Family History: Coronary Artery Disease, Diabetes, High Cholestrol, Hypertension Social History Social History: Grandparents <1 pack per day ALCOHOL: none Drugs: None Lives: with Family Current Problem List Problem List Problems Medical Problems: (1) Hyperglycemia Status: Acute Current Medications Current Medications Current Medications Nitroglycerin (Nitrostat) 0.4 mg PRN Q5MIN PRN SL CHEST PAIN Last administered on 03/12/19at 04:10; Start 03/12/19 at 04:00 Sodium Chloride 1,000 ml @ 1,000 mls/hr 1X ONCE IV Last administered on 03/12/19at 06:05; Start 03/12/19 at 06:00; Stop 03/12/19 at 06:59; Status DC Ondansetron HCl (Zofran) 4 mg PRN Q8HRS PRN IV NAUSEA/VOMITING; Start 03/12/19 at 06:00; Stop 03/13/19 at 05:59 Acetaminophen (Tylenol) 500 mg PRN Q6HRS PRN PO MILD PAIN / TEMP Last administered on 03/12/19at 12:15; Start 03/12/19 at 11:00 Ondansetron HCl (Zofran) 4 mg PRN Q6HRS PRN IVP NAUSEA/VOMITING; Start 03/12/19 at 11:00 Aspirin (Ecotrin) 325 mg DAILYWBKFT PO ; Start 03/12/19 at 11:00; Stop 03/12/19 at 14:16; Status DC Atorvastatin Calcium (Lipitor) 40 mg QHS PO ; Start 03/12/19 at 21:00; Stop 03/12/19 at 15:25; Status DC Lisinopril (Prinivil) 10 mg DAILY PO ; Start 03/12/19 at 11:00 Metoprolol Tartrate (Lopressor) 12.5 mg BID PO ; Start 03/12/19 at 11:00 Non-Formulary Medication (Icosapent Ethyl (Vascepa)) 2 gm BID PO ; Start 03/12/19 at 21:00; Status UNV Insulin Glargine (Lantus Syringe) 20 unit BID SQ Last administered on 03/12/19at 12:19; Start 03/12/19 at 12:00 Insulin Human Lispro (HumaLOG) 0-9 UNITS TIDWMEALS SQ ; Start 03/12/19 at 12:00 Dextrose (Dextrose 50%-Water Syringe) 12.5 gm PRN Q15MIN PRN IV SEE COMMENTS; Start 03/12/19 at 11:00 Dextrose (Iv Dextrose 5%) 250 ml PRN Q15MIN PRN IV SEE COMMENTS; Start 03/12/19 at 11:00 Pantoprazole Sodium (Protonix) 40 mg 1X ONCE PO ; Start 03/12/19 at 11:30; Stop 03/12/19 at 11:31; Status DC Pantoprazole Sodium (Protonix) 40 mg DAILYAC PO ; Start 03/13/19 at 07:30 Insulin Human Lispro (HumaLOG) 15 units 1X ONCE SQ Last administered on 03/12/19at 12:19; Start 03/12/19 at 12:00; Stop 03/12/19 at 12:01; Status DC Atorvastatin Calcium (Lipitor) 80 mg QHS PO ; Start 03/12/19 at 21:00 Active Scripts Active Vascepa (Icosapent Ethyl) 1 Gm Capsule 2 Gm PO BID 30 Days Aspirin Ec (Aspirin) 325 Mg Tablet.dr 325 Mg PO DAILYWBKFT 30 Days Lisinopril 10 Mg Tablet 10 Mg PO DAILY 30 Days Metoprolol Tartrate 25 Mg Tablet 12.5 Mg PO BID 30 Days Atorvastatin Calcium 40 Mg Tablet 40 Mg PO QHS 30 Days Clopidogrel (Clopidogrel Bisulfate) 75 Mg Tablet 75 Mg PO DAILYWBKFT 30 Days Reported Levemir (Insulin Detemir) 100 Unit/1 Ml Vial 20 Unit SQ BID Allergies Allergies: Coded Allergies: hydrocodone (Verified Allergy, Intermediate, 10/30/18) vancomycin (Verified Allergy, Intermediate, 10/30/18) ROS General: No: Chills, Night Sweats, Fatigue, Malaise, Appetite, Other PSYCHOLOGICAL ROS: No: Anxiety, Behavioral Disorder, Concentration difficultie, Decreased libido, Depression, Disorientation, Hallucinations, Hostility, Irritablity, Memory difficulties, Mood Swings, Obsessive thoughts, Physical abuse, Sexual abuse, Sleep disturbances, Suicidal ideation, Other Eyes: No Blurry vision, No Decreased vision, No Double vision, No Dry eyes, No Excessive tearing, No Eye Pain, No Itchy Eyes, No Loss of vision, No Ph otophobia, No Scotomata, No Uses contacts, No Uses glasses, No Other ALLERGY AND IMMUNOLOGY: No: Hives, Insect Bite Sensitivity, Itchy/Watery Eyes, Nasal Congestion, Post Nasal Drip, Seasonal Allergies, Other Hematological and Lymphatic: No: Bleeding Problems, Blood Clots, Blood Transfusions, Brusing, Night Sweats, Pallor, Swollen Lymph Nodes, Other ENDOCRINE: No: Breast Changes, Galactorrhea, Hair Pattern Changes, Hot Flashes, Malaise/lethargy, Mood Swings, Palpitations, Polydipsia/polyuria, Skin Changes, Temperature Intolerance, Unexpected Weight Changes, Other Breast: No New/Changing Breast Lumps, No Nipple changes, No Nipple discharge, No Other Cardiovascular: yes Chest Pain Gastrointestinal: Yes Abdominal Pain Genitourinary: No Dysuria, No Frequency, No Incontinence, No Hematuria, No Retention, No Discharge, No Urgency, No Pain, No Flank Pain, No Other, No , No , No , No , No , No , No Musculoskeletal: No Gait Disturbance, No Joint Pain, No Joint Stiffness, No Joint Swelling, No Muscle Pain, No Muscular Weakness, No Pain In:, No Swelling In:, No Other Neurological: No Behavorial Changes, No Bowel/Bladder ControlChng, No Confusion, No Dizziness, No Gait Disturbance, No Headaches, No Impaired Coord/balance, No Memory Loss, No Numbness/Tingling, No Seizures, No Speech Problems, No Tremors, No Visual Changes, No Weakness, No Other Skin: No Dry Skin, No Eczema, No Hair Changes, No Lumps, No Mole Changes, No Mottling, No Nail Changes, No Pruritus, No Rash, No Skin Lesion Changes, No Other, No Acne Physical Exam General: Alert, Oriented X3 HEENT: Atraumatic Lungs: Clear to auscultation Heart: Regular rate Abdomen: Soft (obese, reports tenderness across upper abdomen, negative M urphy's sign) Extremities: No clubbing, No cyanosis Skin: No rashes Neuro: Normal speech Psych/Mental Status: Mental status NL Vitals VITALS Vital Signs Date Time Temp Pulse Resp B/P (MAP) Pulse Ox O2 Delivery O2 Flow Rate FiO2 03/12/19 15:00 97.8 85 18 117/78 (91) 99 Room Air 97.8 Labs Labs Laboratory Tests Test 03/12/19 03:58 03/12/19 09:06 03/12/19 11:48 03/12/19 12:00 White Blood Count 10.1 x10^3/uL (4.0-11.0) Red Blood Count 5.16 x10^6/uL (3.50-5.40) Hemoglobin 14.7 g/dL (12.0-15.5) Hematocrit 43.3 % (36.0-47.0) Mean Corpuscular Volume 84 fL (79-100) Mean Corpuscular Hemoglobin 29 pg (25-35) Mean Corpuscular Hemoglobin Concent 34 g/dL (31-37) Red Cell Distribution Width 14.4 % (11.5-14.5) Platelet Count 357 x10^3/uL (140-400) Neutrophils (%) (Auto) 60 % (31-73) Lymphocytes (%) (Auto) 30 % (24-48) Monocytes (%) (Auto) 8 % (0-9) Eosinophils (%) (Auto) 2 % (0-3) Basophils (%) (Auto) 1 % (0-3) Neutrophils # (Auto) 6.1 x10^3/uL (1.8-7.7) Lymphocytes # (Auto) 3.0 x10^3/uL (1.0-4.8) Monocytes # (Auto) 0.8 x10^3/uL (0.0-1.1) Eosinophils # (Auto) 0.2 x10^3/uL (0.0-0.7) Basophils # (Auto) 0.0 x10^3/uL (0.0-0.2) Urine Test Negative (NEG) Sodium Level 138 mmol/L (136-145) Potassium Level 4.3 mmol/L (3.5-5.1) Chloride Level 100 mmol/L (98-107) Carbon Dioxide Level 28 mmol/L (21-32) Anion Gap 10 (6-14) Blood Urea Nitrogen 17 mg/dL (7-20) Creatinine 0.6 mg/dL (0.6-1.0) Estimated GFR (Cockcroft-Gault) 113.1 BUN/Creatinine Ratio 28 (6-20) Glucose Level 411 mg/dL (70-99) Calcium Level 9.4 mg/dL (8.5-10.1) Total Bilirubin 0.4 mg/dL (0.2-1.0) Aspartate Amino Transf (AST/SGOT) 10 U/L (15-37) Alanine Aminotransferase (ALT/SGPT) 23 U/L (14-59) Alkaline Phosphatase 88 U/L (46-116) Troponin I Quantitative < 0.017 ng/mL (0.000-0.055) < 0.017 ng/mL (0.000-0.055) < 0.017 ng/mL (0.000-0.055) Total Protein 7.1 g/dL (6.4-8.2) Albumin 3.6 g/dL (3.4-5.0) Albumin/Globulin Ratio 1.0 (1.0-1.7) Triglycerides Level 155 mg/dL (0-150) Cholesterol Level 180 mg/dL (0-200) LDL Cholesterol, Calculated 97 mg/dL (0-100) VLDL Cholesterol, Calculated 31 mg/dL (0-40) Non-HDL Cholesterol Calculated 128 mg/dL (0-129) HDL Cholesterol 52 mg/dL (40-60) Cholesterol/HDL Ratio 3.5 Urine Opiates Screen Neg (NEG) Urine Methadone Screen Neg (NEG) Urine Barbiturates Neg (NEG) Urine Phencyclidine Screen Neg (NEG) Urine Amphetamine/Methamphetamine Neg (NEG) Urine Benzodiazepines Screen Neg (NEG) Urine Cocaine Screen Neg (NEG) Urine Cannabinoids Screen Neg (NEG) Urine Ethyl Alcohol Neg (NEG) Glucose (Fingerstick) 374 mg/dL (70-99) Laboratory Tests Test 03/12/19 03:58 03/12/19 09:06 03/12/19 11:48 03/12/19 12:00 White Blood Count 10.1 x10^3/uL (4.0-11.0) Red Blood Count 5.16 x10^6/uL (3.50-5.40) Hemoglobin 14.7 g/dL (12.0-15.5) Hematocrit 43.3 % (36.0-47.0) Mean Corpuscular Volume 84 fL (79-100) Mean Corpuscular Hemoglobin 29 pg (25-35) Mean Corpuscular Hemoglobin Concent 34 g/dL (31-37) Red Cell Distribution Width 14.4 % (11.5-14.5) Platelet Count 357 x10^3/uL (140-400) Neutrophils (%) (Auto) 60 % (31-73) Lymphocytes (%) (Auto) 30 % (24-48) Monocytes (%) (Auto) 8 % (0-9) Eosinophils (%) (Auto) 2 % (0-3) Basophils (%) (Auto) 1 % (0-3) Neutrophils # (Auto) 6.1 x10^3/uL (1.8-7.7) Lymphocytes # (Auto) 3.0 x10^3/uL (1.0-4.8) Monocytes # (Auto) 0.8 x10^3/uL (0.0-1.1) Eosinophils # (Auto) 0.2 x10^3/uL (0.0-0.7) Basophils # (Auto) 0.0 x10^3/uL (0.0-0.2) Urine Test Negative (NEG) Sodium Level 138 mmol/L (136-145) Potassium Level 4.3 mmol/L (3.5-5.1) Chloride Level 100 mmol/L (98-107) Carbon Dioxide Level 28 mmol/L (21-32) Anion Gap 10 (6-14) Blood Urea Nitrogen 17 mg/dL (7-20) Creatinine 0.6 mg/dL (0.6-1.0) Estimated GFR (Cockcroft-Gault) 113.1 BUN/Creatinine Ratio 28 (6-20) Glucose Level 411 mg/dL (70-99) Calcium Level 9.4 mg/dL (8.5-10.1) Total Bilirubin 0.4 mg/dL (0.2-1.0) Aspartate Amino Transf (AST/SGOT) 10 U/L (15-37) Alanine Aminotransferase (ALT/SGPT) 23 U/L (14-59) Alkaline Phosphatase 88 U/L (46-116) Troponin I Quantitative < 0.017 ng/mL (0.000-0.055) < 0.017 ng/mL (0.000-0.055) < 0.017 ng/mL (0.000-0.055) Total Protein 7.1 g/dL (6.4-8.2) Albumin 3.6 g/dL (3.4-5.0) Albumin/Globulin Ratio 1.0 (1.0-1.7) Triglycerides Level 155 mg/dL (0-150) Cholesterol Level 180 mg/dL (0-200) LDL Cholesterol, Calculated 97 mg/dL (0-100) VLDL Cholesterol, Calculated 31 mg/dL (0-40) Non-HDL Cholesterol Calculated 128 mg/dL (0-129) HDL Cholesterol 52 mg/dL (40-60) Cholesterol/HDL Ratio 3.5 Urine Opiates Screen Neg (NEG) Urine Methadone Screen Neg (NEG) Urine Barbiturates Neg (NEG) Urine Phencyclidine Screen Neg (NEG) Urine Amphetamine/Methamphetamine Neg (NEG) Urine Benzodiazepines Screen Neg (NEG) Urine Cocaine Screen Neg (NEG) Urine Cannabinoids Screen Neg (NEG) Urine Ethyl Alcohol Neg (NEG) Glucose (Fingerstick) 374 mg/dL (70-99) Assessment/Plan Assessment/Plan 34 year old female with upper abdominal pain, currently on plavix/aspirin following coronary stent placement. Cardiology consulted and await final recs. Karthikeyan hser reasonable to offer however needs to be off of plavix approx 7 days. If unable to DC plavix then would arrange for outpatient FU in the future at a time when the plavix can be held. ANAM FORD MD Mar 12, 2019 16:57
[2019-03-12 19:05] VITALS: BP 122/74
[2019-03-12] MEDS: NON FORMULARY ITEM (Icosapent Ethyl (Vascepa) 2 GM) PO SCH (21:00)
[2019-03-12] MEDS ORDERED: ATORVASTATIN CALCIUM 40 MG TABLET. PO SCH ×2 (21:00)
[2019-03-12 23:05] VITALS: BP 124/75
[2019-03-13 03:05] VITALS: BP 148/70
[2019-03-13 03:08] LABS: HEMOGLOBIN A1C 12.2 % (4.8-5.6)
[2019-03-13 04:54] LABS: BASO % 0 % (0-3); EOS # 0.2 x10^3/uL (0.0-0.7); EOS % 2 % (0-3); HEMOGLOBIN 13.4 g/dL (12.0-15.5); LYMPH % 37 % (24-48); MEAN CORPUSCULAR HEMOGLOBIN 29 pg (25-35); MEAN CORPUSCULAR HGB CONC 34 g/dL (31-37); MEAN CORPUSCULAR VOLUME 85 fL (79-100); MONO # 0.5 x10^3/uL (0.0-1.1); MONO % 6 % (0-9); NEUT # 4.4 x10^3/uL (1.8-7.7); NEUT % 55 % (31-73); PLATELET COUNT 286 x10^3/uL (140-400); RED CELL DISTRIBUTION WIDTH 14.5 % (11.5-14.5)
[2019-03-13 05:29] LABS: CALCIUM 8.6 mg/dL (8.5-10.1); CREATININE 0.5 mg/dL (0.6-1.0); GFR 139.6; POTASSIUM 3.7 mmol/L (3.5-5.1)
[2019-03-13] MEDS ORDERED: fentaNYL PF VIAL 100 MCG/2 ML VIAL IV PRN ×2 (07:00)
[2019-03-13] MEDS ORDERED: IV RINGERS,LACTATED 1000ML 1,000 ML IV SCH (07:00)
[2019-03-13] MEDS ORDERED: ONDANSETRON PF 4 MG/2 ML VIAL. IV PRN (07:00)
[2019-03-13] MEDS ORDERED: PROCHLORPERAZINE 10 MG/2 ML VIAL. IV PRN (07:00)
[2019-03-13] MEDS ORDERED: PANTOPRAZOLE 40 MG TABLET.DR. PO SCH (07:30)
[2019-03-13 07:54] VITALS: BP 121/73
[2019-03-13] MEDS ORDERED: PANT40TA77 PO (08:39)
[2019-03-13] MEDS ORDERED: ATOR40TA59 PO (08:39)
[2019-03-13] MEDS: INSULIN LISPRO 300 UNITS/3 ML VIAL. SQ SCH ×2 (09:32→12:28)
[2019-03-13] MEDS: LISINOPRIL 10 MG TABLET PO SCH (10:05)
[2019-03-13] MEDS: INSULIN GLARGINE SYRINGE. SQ SCH (10:07)
[2019-03-13] MEDS: NON FORMULARY ITEM (Icosapent Ethyl (Vascepa) 2 GM) PO SCH (10:07)
[2019-03-13] MEDS: METOPROLOL TART IMMED RELEASE 25 MG TABLET. PO SCH (10:07)
[2019-03-13 11:08] VITALS: BP 122/79
--- NOTE | 2019-03-13 11:39 | PDOC3 ---
Discharge Summary Visit Information Date of Admission: Mar 12, 2019 Date of Discharge: Mar 13, 2019 Admitting Diagnosis Comment: GB stones FAtty liver hx CAD 1 stent Final Diagnosis Problems Medical Problems: (1) Hyperglycemia Status: Acute Brief Hospital Course Allergies Allergies Coded Allergies Type Severity Reaction Last Updated Verified hydrocodone Allergy Intermediate 10/30/18 Yes vancomycin Allergy Intermediate 10/30/18 Yes Vital Signs Vital Signs Date Time Temp Pulse Resp B/P (MAP) Pulse Ox O2 Delivery O2 Flow Rate FiO2 03/13/19 11:08 98.2 77 18 122/79 (93) 96 Room Air 98.2 Lab Results Laboratory Tests Test 03/12/19 03:58 03/12/19 09:06 03/12/19 11:48 03/12/19 12:00 White Blood Count 10.1 x10^3/uL (4.0-11.0) Red Blood Count 5.16 x10^6/uL (3.50-5.40) Hemoglobin 14.7 g/dL (12.0-15.5) Hematocrit 43.3 % (36.0-47.0) Mean Corpuscular Volume 84 fL (79-100) Mean Corpuscular Hemoglobin 29 pg (25-35) Mean Corpuscular Hemoglobin Concent 34 g/dL (31-37) Red Cell Distribution Width 14.4 % (11.5-14.5) Platelet Count 357 x10^3/uL (140-400) Neutrophils (%) (Auto) 60 % (31-73) Lymphocytes (%) (Auto) 30 % (24-48) Monocytes (%) (Auto) 8 % (0-9) Eosinophils (%) (Auto) 2 % (0-3) Basophils (%) (Auto) 1 % (0-3) Neutrophils # (Auto) 6.1 x10^3/uL (1.8-7.7) Lymphocytes # (Auto) 3.0 x10^3/uL (1.0-4.8) Monocytes # (Auto) 0.8 x10^3/uL (0.0-1.1) Eosinophils # (Auto) 0.2 x10^3/uL (0.0-0.7) Basophils # (Auto) 0.0 x10^3/uL (0.0-0.2) Urine Test Negative (NEG) Sodium Level 138 mmol/L (136-145) Potassium Level 4.3 mmol/L (3.5-5.1) Chloride Level 100 mmol/L (98-107) Carbon Dioxide Level 28 mmol/L (21-32) Anion Gap 10 (6-14) Blood Urea Nitrogen 17 mg/dL (7-20) Creatinine 0.6 mg/dL (0.6-1.0) Estimated GFR (Cockcroft-Gault) 113.1 BUN/Creatinine Ratio 28 (6-20) Glucose Level 411 mg/dL (70-99) Hemoglobin A1c 12.2 % (4.8-5.6) Calcium Level 9.4 mg/dL (8.5-10.1) Total Bilirubin 0.4 mg/dL (0.2-1.0) Aspartate Amino Transf (AST/SGOT) 10 U/L (15-37) Alanine Aminotransferase (ALT/SGPT) 23 U/L (14-59) Alkaline Phosphatase 88 U/L (46-116) Troponin I Quantitative < 0.017 ng/mL (0.000-0.055) < 0.017 ng/mL (0.000-0.055) < 0.017 ng/mL (0.000-0.055) Total Protein 7.1 g/dL (6.4-8.2) Albumin 3.6 g/dL (3.4-5.0) Albumin/Globulin Ratio 1.0 (1.0-1.7) Triglycerides Level 155 mg/dL (0-150) Cholesterol Level 180 mg/dL (0-200) LDL Cholesterol, Calculated 97 mg/dL (0-100) VLDL Cholesterol, Calculated 31 mg/dL (0-40) Non-HDL Cholesterol Calculated 128 mg/dL (0-129) HDL Cholesterol 52 mg/dL (40-60) Cholesterol/HDL Ratio 3.5 Urine Opiates Screen Neg (NEG) Urine Methadone Screen Neg (NEG) Urine Barbiturates Neg (NEG) Urine Phencyclidine Screen Neg (NEG) Urine Amphetamine/Methamphetamine Neg (NEG) Urine Benzodiazepines Screen Neg (NEG) Urine Cocaine Screen Neg (NEG) Urine Cannabinoids Screen Neg (NEG) Urine Ethyl Alcohol Neg (NEG) Glucose (Fingerstick) 374 mg/dL (70-99) Test 03/12/19 20:56 1/29/20 03:30 03/13/19 07:20 03/13/19 10:48 Glucose (Fingerstick) 312 mg/dL (70-99) 275 mg/dL (70-99) 398 mg/dL (70-99) White Blood Count 8.0 x10^3/uL (4.0-11.0) Red Blood Count 4.60 x10^6/uL (3.50-5.40) Hemoglobin 13.4 g/dL (12.0-15.5) Hematocrit 39.0 % (36.0-47.0) Mean Corpuscular Volume 85 fL (79-100) Mean Corpuscular Hemoglobin 29 pg (25-35) Mean Corpuscular Hemoglobin Concent 34 g/dL (31-37) Red Cell Distribution Width 14.5 % (11.5-14.5) Platelet Count 286 x10^3/uL (140-400) Neutrophils (%) (Auto) 55 % (31-73) Lymphocytes (%) (Auto) 37 % (24-48) Monocytes (%) (Auto) 6 % (0-9) Eosinophils (%) (Auto) 2 % (0-3) Basophils (%) (Auto) 0 % (0-3) Neutrophils # (Auto) 4.4 x10^3/uL (1.8-7.7) Lymphocytes # (Auto) 3.0 x10^3/uL (1.0-4.8) Monocytes # (Auto) 0.5 x10^3/uL (0.0-1.1) Eosinophils # (Auto) 0.2 x10^3/uL (0.0-0.7) Basophils # (Auto) 0.0 x10^3/uL (0.0-0.2) Sodium Level 138 mmol/L (136-145) Potassium Level 3.7 mmol/L (3.5-5.1) Chloride Level 102 mmol/L (98-107) Carbon Dioxide Level 26 mmol/L (21-32) Anion Gap 10 (6-14) Blood Urea Nitrogen 12 mg/dL (7-20) Creatinine 0.5 mg/dL (0.6-1.0) Estimated GFR (Cockcroft-Gault) 139.6 Glucose Level 339 mg/dL (70-99) Calcium Level 8.6 mg/dL (8.5-10.1) Laboratory Tests Test 03/12/19 11:48 03/12/19 12:00 03/12/19 20:56 03/13/19 03:30 Glucose (Fingerstick) 374 mg/dL (70-99) 312 mg/dL (70-99) Troponin I Quantitative < 0.017 ng/mL (0.000-0.055) White Blood Count 8.0 x10^3/uL (4.0-11.0) Red Blood Count 4.60 x10^6/uL (3.50-5.40) Hemoglobin 13.4 g/dL (12.0-15.5) Hematocrit 39.0 % (36.0-47.0) Mean Corpuscular Volume 85 fL (79-100) Mean Corpuscular Hemoglobin 29 pg (25-35) Mean Corpuscular Hemoglobin Concent 34 g/dL (31-37) Red Cell Distribution Width 14.5 % (11.5-14.5) Platelet Count 286 x10^3/uL (140-400) Neutrophils (%) (Auto) 55 % (31-73) Lymphocytes (%) (Auto) 37 % (24-48) Monocytes (%) (Auto) 6 % (0-9) Eosinophils (%) (Auto) 2 % (0-3) Basophils (%) (Auto) 0 % (0-3) Neutrophils # (Auto) 4.4 x10^3/uL (1.8-7.7) Lymphocytes # (Auto) 3.0 x10^3/uL (1.0-4.8) Monocytes # (Auto) 0.5 x10^3/uL (0.0-1.1) Eosinophils # (Auto) 0.2 x10^3/uL (0.0-0.7) Basophils # (Auto) 0.0 x10^3/uL (0.0-0.2) Sodium Level 138 mmol/L (136-145) Potassium Level 3.7 mmol/L (3.5-5.1) Chloride Level 102 mmol/L (98-107) Carbon Dioxide Level 26 mmol/L (21-32) Anion Gap 10 (6-14) Blood Urea Nitrogen 12 mg/dL (7-20) Creatinine 0.5 mg/dL (0.6-1.0) Estimated GFR (Cockcroft-Gault) 139.6 Glucose Level 339 mg/dL (70-99) Calcium Level 8.6 mg/dL (8.5-10.1) Test 03/13/19 07:20 03/13/19 10:48 Glucose (Fingerstick) 275 mg/dL (70-99) 398 mg/dL (70-99) Brief Hospital Course Ms. Crocker is a 34 old [sex] who presented with [ ]"chest pain". BUT turned out to be non cardiac and has GB stones on imaging, GS seen, does recommend lap sher if cards okays to be off plavix 7 days before sx. 1 cardiac stent october 2018, NO PT Needs. Rx on chart Dw Francesca esquivel and case mx Dc < 30 mins Discharge Information Disposition/Orders: D/C to Home Scheduled Aspirin (Aspirin Ec) 325 Mg Tablet., 325 MG PO DAILYWBKFT for coronary artery disease for 30 Days, #30 Ref 2 Prescribed by: JOHN BACK APRN on 11/01/18 1349 Last Action: Continued on 03/12/19 1059 by DAVID WHITTEN Atorvastatin Calcium (Atorvastatin Calcium) 40 Mg Tablet, 80 MG PO QHS for lipids, #60 Prescribed by: DAVID WHITTEN on 03/13/19 0839 Clopidogrel Bisulfate (Clopidogrel) 75 Mg Tablet, 75 MG PO DAILYWBKFT for coronary artery disease for 30 Days, #30 Ref 2 Prescribed by: JOHN BACK APRN on 11/01/18 1347 Icosapent Ethyl (Vascepa) 1 Gm Capsule, 2 GM PO BID for elevated triglycerides for 30 Days, #120 Ref 2 Prescribed by: JOHN BACK APRN on 11/01/18 1537 Last Action: Converted on 03/12/19 1059 by DAVID WHITTEN Insulin Detemir (Levemir) 100 Unit/1 Ml Vial, 20 UNIT SQ BID for diabetes, (Reported) Entered as Reported by: Karthik Mooney on 10/30/18 7099 Last Action: Converted on 03/12/19 1059 by DAVID WHITTEN Lisinopril (Lisinopril) 10 Mg Tablet, 10 MG PO DAILY for heart for 30 Days, #30 Ref 2 Prescribed by: JOHN BACK APRN on 11/01/18 1347 Last Action: Continued on 03/12/19 1059 by DAVID WHITTEN Metoprolol Tartrate (Metoprolol Tartrate) 25 Mg Tablet, 12.5 MG PO BID for heart for 30 Days, #30 Ref 2 Prescribed by: JOHN BACK APRN on 11/01/18 1347 Last Action: Continued on 03/12/19 1059 by DAVID WHITTEN Pantoprazole Sodium (Pantoprazole Sodium ) 40 Mg Tablet., 40 MG PO DAILYAC for gi ppx, gerd, #60 Prescribed by: DAVID WHITTEN on 03/13/19 0839 Discontinued Medications Atorvastatin Calcium (Atorvastatin Calcium) 40 Mg Tablet, 40 MG PO QHS for high cholsterol for 30 Days, #30 Ref 2 Prescribed by: JOHN BACK APRN on 11/01/181346 Last Action: Continued on 03/12/19 1059 by DAVID WHITTEN Patient Instructions Patient Instructions FF UP DR OCHOA, STOP PLAVIX 7 DAYS BEFORE ELECTIVE LAP DAVID GUZMAN MD Mar 13, 2019 11:39
--- NOTE | 2019-03-13 12:35 | NUR ---
Pt was escorted and self ambulate by Lizbeth JOY with belongings and prescriptions of atorvastatin, lortab, and pantoprazole.
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
--- NOTE | 2019-03-13 13:01 | NUR ---
Pt was called and answered. Imformed and verified her attending her to her follow up [employer] caf[employer] cook head appt with Dion on Apr 08, 2019. Informed her where it is. Asked if she needed the address. She stated no.
== END 2019-03-13 13:01 | disposition home or self-care (01) ==
LOC: ER 00:20 → 6 SOUTH 04:00
PROVIDERS: ADMIT Internal Medicine; ATTEND Internal Medicine
DX: I24.9 Acute ischemic heart disease, unspecified (principal); E11.65 Type 2 diabetes mellitus with hyperglycemia; I10 Essential (primary) hypertension; E78.5 Hyperlipidemia, unspecified
CPT/HCPCS: 36415; 71045; 76705; 80048; 80053; 80061; 80307; 81025; 82962; 83036; 84484; 85025; 93005; 96360; 96372; 99285; G0378; J1815; J7030; G0379

== ENCOUNTER 2019-03-25 08:13 | Day surgery (SDC) | payer OTHER ==
[~2019-03-25 08:13] MED LIST changes: +IV RINGERS,LACTATED 1000ML 1,000 ML IV SCH; +LIDOCAINE 1% PF 2 ML VIAL. ID PRN; +ONDANSETRON PF 4 MG/2 ML VIAL. IV PRN; +PANT40TA77 PO; +PROCHLORPERAZINE 10 MG/2 ML VIAL. IV PRN; +ceFAZolin SODIUM 3 GM in IV DEXTROSE 5% 100ML 100 ML IV PRN; +fentaNYL PF VIAL 100 MCG/2 ML VIAL IV PRN
[2019-03-25] MEDS: INSULIN LISPRO 100 UNIT/ML 3ML VIAL for OP,RR ONLY. SQ PRN ×3 (08:53→11:43)
[2019-03-25] MEDS ORDERED: MIDAZOLAM HCL/PF 2 MG/2 ML VIAL. ONE (09:23)
[2019-03-25] MEDS ORDERED: fentaNYL PF VIAL 100 MCG/2 ML VIAL ONE ×2 (09:24→10:57)
[2019-03-25] MEDS ORDERED: NEOSTIGMINE METHYLSULFATE 5 MG/5 ML SYRINGE. ONE (09:24)
[2019-03-25] MEDS ORDERED: GLYCOPYRROLATE 1 MG/5 ML VIAL. ONE (09:24)
[2019-03-25] MEDS ORDERED: SEVOFLURANE 61 TO 120 MINUTES. IH ONE (09:24)
[2019-03-25] MEDS ORDERED: ROCURONIUM 50 MG/5 ML VIAL. ONE (09:24)
[2019-03-25] MEDS ORDERED: DEXAMETHASONE SOD PHOS 4 MG/ML VIAL ONE ×2 (09:25)
[2019-03-25] MEDS ORDERED: KETOROLAC 30 MG/ML VIAL. ONE (09:25)
[2019-03-25] MEDS ORDERED: ONDANSETRON PF 4 MG/2 ML VIAL. ONE (09:25)
[2019-03-25] MEDS ORDERED: LIDOCAINE 2% PF 5 ML VIAL. ONE (09:25)
[2019-03-25] MEDS ORDERED: PROPOFOL 20 ML IV ONE (09:25)
[2019-03-25] MEDS ORDERED: SURGICEL HEMOSTAT 4X8 EACH. ONE (09:57)
[2019-03-25] MEDS ORDERED: BUPIVACAINE-EPI 0.5%-1:200000 MPF 30 ML VIAL. ONE (09:57)
[2019-03-25] MEDS ORDERED: IOHEXOL 300 MG/ML 50 ML VIAL. ONE (09:57)
[2019-03-25] MEDS ORDERED: BUPIVACAINE MPF 0.5% 30 ML VIAL. ONE (10:08)
[2019-03-25] MEDS ORDERED: ESMOLOL 100 MG/10 ML VIAL. IVP ONE (10:51)
[2019-03-25] MEDS ORDERED: hydrALAZINE 20 MG/ML VIAL. ONE (11:00)
--- NOTE | 2019-03-25 11:34 | PDOC4 ---
Operative Note Operative Note Operative Note: Preoperative Diagnosis: Symptomatic cholelithiasis Postoperative Diagnosis: Same Procedure: Laparoscopic cholecystectomy with intraoperative cholangiogram Surgeons: Song Cannon Pinion Adjuster: Ricky PARKS Anesthesia: Gen. Estimated Blood Loss: 10 mL Specimen: Gallbladder to pathology Drains: None Complications: None Indications: The patient is a 34 year old female who is been experiencing recurrent upper abdominal pain consistent with biliary colic. Her evaluation showed gallstones. Surgical treatment was offered by means of a laparoscopic cholecystectomy. The risks of surgery were discussed which include bleeding, infection, bile duct injury, bile leak, pain, the potential for additional surgeries or procedures. The patient understands and would like to proceed. Description: The patient was taken to the operating room and laid supine on the operating table. General anesthesia was performed. The abdomen was prepped with ChloraPrep and draped in a standard surgical fashion. A small supraumbilical incision was made with a scalpel. The Veress needle was then inserted and a pneumoperitoneum was then created. A 5 mm trocar was then inserted and the laparoscope was introduced. In the upper midabdomen a 5 mm trocar was inserted and in the right upper quadrant two 2.3 mm mini lap graspers were inserted. The gallbladder was retracted cephalad. The cystic duct was dissected free from surrounding tissues. One clip was placed on the duct near the gallbladder junction. An opening was made in the duct and a cholangiocatheter placed within and secured with a clip. Using contrast dye and fluoroscopy an intraoperative cholangiogram was performed that appeared unremark able. The clip and catheter were then withdrawn. Three clips were placed on the cystic duct and it was divided. The cystic artery was then identified, dissected free, doubly clipped and divided as well. The gallbladder was then mobilized away from the liver with cautery. The umbilical 5 millimeter trocar was exchanged for an 11 millimeter trocar. The gallbladder was then placed in an endoscopic bag and extracted at the umbilical trocar site. The fascia there was closed with an 0 Vicryl suture. All blood and irrigation fluid was suctioned and hemostasis was good. The remaining ports were removed and the pneumoperitoneum was relieved. The skin incisions were injected with half percent Marcaine with epinephrine, and all were closed using 4-0 Monocryl suture. Steri-Strips and dressings were then applied. The patient tolerated the procedure well and was sent to the recovery room in stable condition. At the end of the case all counts were correct. ANAM FORD MD Mar 25, 2019 11:33
--- NOTE | 2019-03-25 11:36 | RAD ---
C-arm fluoroscopy with fluoroscopic spot views Clinical indications: Intraoperative cholangiogram Total fluoroscopic time: 31.7 seconds. Total fluoroscopic spot images: 3 FINDINGS/ IMPRESSION: Fluoroscopic spot images demonstrate opacification of the nondilated extrahepatic biliary tree with free flow of contrast material from the common bile duct into the duodenum. No common bile duct stricture or stone is seen. Electronically signed by: Oscar Hamilton MD (03/25/2019 11:33 AM) [facility]
--- NOTE | 2019-03-25 11:37 | DISCH ---
DISCHARGE INSTRUCTIONS Condition on Discharge Condition on Discharge: Stable Activity After Discharge Activity Instructions for Disc: Other, see below (no lifting over 20 lbs X 2 weeks) Driving Instructions after Dis: Other, see below (no driving while taking pain meds) Diet after Discharge Diet after Discharge: Regular Wound Incision Care Wound/Incision Care: Other, see below (may remove bandaids and shower tomorrow, steristrips fall of on their own) Follow-Up Follow up with: Dr Ford in 2 weeks in office, call for appt [phone] ANAM FORD MD Mar 25, 2019 11:37
[2019-03-25] MEDS ORDERED: INSULIN LISPRO 100 UNIT/ML 3ML VIAL for OP,RR ONLY. SQ PRN (11:45)
[2019-03-25] MEDS ORDERED: OXYC-325 PO (11:51)
[2019-03-25] MEDS ORDERED: oxyCODONE/APAP 5/325 1 TAB TABLET PO ONE ×2 (12:00)
[2019-03-25] MEDS: fentaNYL PF VIAL 100 MCG/2 ML VIAL IV PRN ×2 (12:17→12:41)
[2019-03-25 13:15] VITALS: BP 101/68
--- NOTE | 2019-03-26 17:06 | PATHOLOGY ---
[facility] Accession Number: [id number] . 01 Material submitted: . gallbladder - GALLBLADDER AND CONTENTS . 01 Clinical history: . gallstones . 02 Diagnosis: Gallbladder, laparoscopic cholecystectomy: - Cholelithiasis. - Cholesterolosis, focal. - Focal lipogranulomata of gallbladder neck lymph node. LBQ 03/26/2019 1551 Local . 02 Comment: There is no evidence of malignancy. (JPM/db; 03/26/2019) . 02 Electronically signed: . Franki Bermudez MD, Pathologist NPI- [id number] . 01 Gross description: . The specimen is received in formalin labeled "Crocker, Brii, gallbladder and contents" and consists of intact pink-velázquez to green smooth shiny gallbladder measuring 10.7 x 3.4 x 2.4 cm. The margin is inked black. Opening reveals a lumen filled with viscous green bile and multiple spiculated black calculi measuring up to 0.6 cm. The mucosa is green-brown with yellow highlights and an average wall thickness of 0.1 cm. No masses are identified. Adjacent the gallbladder neck is a lymph node measuring 0.9 cm. Regulatory Services Consultant sections are submitted in A1. (SDY; 03/25/2019) SYU/SYU 03/25/2019 1718 Local . 02 Pathologist provided ICD-10: K81.1, K82.4 . 02 CPT . 848626 Specimen Comment: A courtesy copy of this report has been sent to [phone] Specimen Comment: Report sent to Performed at: [address], [place], [place] [id number] MD Elias Grewal MD Phone: [phone] Performed at: 02 [facility] [address] [place], [place] [id number] MD Franki Bermudez MD Phone: [phone]
== END 2019-03-25 13:58 | disposition home or self-care (01) ==
LOC: SURG 08:13
PROVIDERS: ATTEND Surgery
DX: K80.20 Calculus of gallbladder without cholecystitis without obstruction (principal); I25.2 Old myocardial infarction; I10 Essential (primary) hypertension; I25.10 Atherosclerotic heart disease of native coronary artery without angina pectoris; J44.9 Chronic obstructive pulmonary disease, unspecified; K21.9 Gastro-esophageal reflux disease without esophagitis; E11.42 Type 2 diabetes mellitus with diabetic polyneuropathy; F41.9 Anxiety disorder, unspecified; F32.9 Major depressive disorder, single episode, unspecified; Z98.890 Other specified postprocedural states; E66.9 Obesity, unspecified; Z68.33 Body mass index [BMI] 33.0-33.9, adult; Z79.82 Long term (current) use of aspirin; Z79.899 Other long term (current) drug therapy; Z87.891 Personal history of nicotine dependence; Z87.442 Personal history of urinary calculi; Z79.84 Long term (current) use of oral hypoglycemic drugs
CPT/HCPCS: 47563; 74300; 81025; 82962; A7015; J0780; J1100; J1885; J2001; J2250; J2405; J2704; J2710; J3010; J3490; J7030; J7120; Q9967; J0360